=== PATIENT | male | born 1950 | race African-American/Black ===

== ENCOUNTER 2016-11-15 10:26 | Inpatient (IN) | payer MEDICARE, OTHER ==
[~2016-11-15] VITALS: Ht 175.3 cm; Wt 65.3 kg
[~2016-11-15 10:26] MED LIST: OXYC30TA2 PO; OXYC40TA50 PO; TEMA30CA5 PO
[2016-11-15 12:01] LABS: BASOPHILS # (AUTO) 0.1 /CMM (0.0-0.2); BASOPHILS % (AUTO) 0.8 % (0.0-2.0); DIFF TOTAL % 100 %; EOSINOPHILS % (AUTO) 0.6 % (0.0-6.0); HEMATOCRIT 46 % (39-51); HEMOGLOBIN 14.9 g/dL (13.5-17.5); LYMPHOCYTES # (AUTO) 0.9 /CMM (0.8-4.8); LYMPHOCYTES % (AUTO) 14.2 % (20.0-44.0); MEAN CORPUSCULAR HEMOGLOBIN 28 PG (26.0-33.0); MEAN CORPUSCULAR HGB CONC 32 g/dl (31.0-36.0); MEAN CORPUSCULAR VOLUME 87 fL (80-96); MONOCYTES # (AUTO) 0.4 /CMM (0.1-1.30); MONOCYTES % (AUTO) 5.5 % (2.0-12.0); NEUTROPHILS # (AUTO) 5.2 /CMM (1.8-8.9); NEUTROPHILS % (AUTO) 78.9 % (43.0-81.0); PLATELET COUNT (AUTO) 258 /CMM (150-450); RED BLOOD CELL COUNT(AUTO) 5.33 MIL/uL (4.5-6.0); WHITE BLOOD COUNT (AUTO) 6.6 K/uL (4.3-11.0)
[2016-11-15 12:03] LABS: KETONES,URINE 15 (NEGATIVE); LEUKOCYTE ESTERASE ,URINE Negative (NEGATIVE)
[2016-11-15 12:05] LABS: ADD UA MICROSCOPIC YES
[2016-11-15 12:09] LABS: ANION GAP 13 (5-14); CALCIUM, SERUM 9.4 mg/dL (8.5-10.1); CARBON DIOXIDE 26 mmol/L (21-32); CHLORIDE 103 mmol/L (98-107); CREATININE 0.9 mg/dL (0.6-1.3); GFR 102 mL/min (>60); GLUCOSE 92 mg/dL (74-106); POTASSIUM 4.1 mmol/L (3.5-5.1); SODIUM SERUM 138 mmol/L (136-145); UREA NITROGEN, BLOOD 8 mg/dL (7-18)
[2016-11-15 12:12] LABS: RBC,URINE 0-2 /HPF (0-2); WBC,URINE 0-2 /HPF (0-3)
[2016-11-15 12:13] LABS: ADD URINE CULTURE NO
[2016-11-15 12:16] LABS: ALANINE AMINOTRANSFERASE 16 U/L (12-78); ALBUMIN 3.5 g/dL (3.4-5.0); ASPARTATE AMINOTRANSFERASE 18 U/L (15-37); BILIRUBIN,DIRECT 0.1 mg/dL (0.0-0.2); BILIRUBIN,TOTAL 0.6 mg/dL (0.2-1.0); INDIRECT BILIRUBIN 0.5 mg/dL (0.0-1.1); SALICYLATE 4.1 mg/dL (2.8-20.0); TOTAL PROTEIN, SERUM 7.4 g/dL (6.4-8.2)
[2016-11-15 12:19] LABS: ACETAMINOPHEN 0 ug/ml (10-30)
[2016-11-15 12:20] LABS: PHENCYCLIDINE SCREEN,URINE NEGATIVE (NEGATIVE)
[2016-11-15 12:21] LABS: CANNABINOID, URINE POSITIVE (NEGATIVE)
[2016-11-15] MEDS ORDERED: ACETAMINOPHEN 325 MG TABLET PO PRN (13:30)
[2016-11-15] MEDS ORDERED: MAG HYDROX/AL HYDROX/SIMETH 30 ML UDC PO PRN (13:30)
[2016-11-15] MEDS: BOOST PLUS FOOD-VANILLA 237 ML BOX PO SCH ×2 (14:39→16:39)
[2016-11-15] MEDS: oxyCODONE IR immediate release 5 MG CAPSULE PO PRN ×2 (15:23→23:43)
[2016-11-15 16:00] VITALS: BP 138/81
[2016-11-15 19:42] VITALS: BP 143/96
[2016-11-15] MEDS: oxyCODONE HCL SR 40MG TAB.SR.12H PO SCH (20:33)
[2016-11-15] MEDS: TEMAZEPAM 7.5 MG CAPSULE PO PRN (21:42)
[2016-11-16 08:00] VITALS: BP 125/79
[2016-11-16] MEDS: SERTRALINE HCL 25 MG TABLET PO SCH (08:04)
[2016-11-16] MEDS: oxyCODONE HCL SR 40MG TAB.SR.12H PO SCH ×2 (08:05→20:51)
[2016-11-16] MEDS: BOOST PLUS FOOD-VANILLA 237 ML BOX PO SCH ×3 (08:05→16:12)
[2016-11-16] MEDS: NICOTINE PATCH (14MG) 14 MG PATCH.TD24 TD SCH (08:05)
[2016-11-16 08:54] LABS: ALBUMIN 3.4 g/dL (3.4-5.0); BILIRUBIN,TOTAL 0.4 mg/dL (0.2-1.0); CALCIUM, SERUM 9.1 mg/dL (8.5-10.1); CREATININE 1.1 mg/dL (0.6-1.3); POTASSIUM 3.5 mmol/L (3.5-5.1); TOTAL PROTEIN, SERUM 6.9 g/dL (6.4-8.2)
[2016-11-16] MEDS: oxyCODONE IR immediate release 5 MG CAPSULE PO PRN (11:47)
[2016-11-16 16:00] VITALS: BP 132/99
[2016-11-16] MEDS: LORAZEPAM 0.5 MG TABLET PO PRN (16:11)
[2016-11-16 19:58] VITALS: BP 110/65
[2016-11-16] MEDS: TEMAZEPAM 7.5 MG CAPSULE PO PRN (20:52)
[2016-11-17] MEDS: MAGNESIUM HYDROXIDE 30 ML UDC PO PRN ×2 (03:20→17:10)
[2016-11-17] MEDS: oxyCODONE IR immediate release 5 MG CAPSULE PO PRN ×2 (03:21→12:18)
[2016-11-17 08:00] VITALS: BP 130/74
[2016-11-17] MEDS: NICOTINE PATCH (14MG) 14 MG PATCH.TD24 TD SCH ×2 (09:00→09:36)
[2016-11-17] MEDS: SERTRALINE HCL 25 MG TABLET PO SCH (09:35)
[2016-11-17] MEDS: BOOST PLUS FOOD-VANILLA 237 ML BOX PO SCH ×3 (09:35→17:10)
[2016-11-17] MEDS: oxyCODONE HCL SR 40MG TAB.SR.12H PO SCH ×2 (09:35→21:51)
[2016-11-17 16:00] VITALS: BP 106/59
[2016-11-17] MEDS: LORAZEPAM 0.5 MG TABLET PO PRN ×2 (17:10→23:23)
[2016-11-17 19:45] VITALS: BP 104/50
[2016-11-17] MEDS: TEMAZEPAM 7.5 MG CAPSULE PO PRN (22:14)
[2016-11-18 08:00] VITALS: BP 156/81
[2016-11-18] MEDS: NICOTINE PATCH (14MG) 14 MG PATCH.TD24 TD SCH (09:00)
[2016-11-18] MEDS: SERTRALINE HCL 25 MG TABLET PO SCH (09:00)
[2016-11-18] MEDS: oxyCODONE HCL SR 40MG TAB.SR.12H PO SCH ×2 (09:21→21:17)
[2016-11-18] MEDS: BOOST PLUS FOOD-VANILLA 237 ML BOX PO SCH ×3 (09:22→17:51)
[2016-11-18] MEDS: oxyCODONE IR immediate release 5 MG CAPSULE PO PRN (13:04)
[2016-11-18] MEDS: LORAZEPAM 0.5 MG TABLET PO PRN ×2 (13:06→23:12)
[2016-11-18 16:00] VITALS: BP 100/61
[2016-11-18 20:00] VITALS: BP 122/80
[2016-11-18] MEDS: TEMAZEPAM 7.5 MG CAPSULE PO PRN (21:18)
[2016-11-19 08:00] VITALS: BP 130/82
[2016-11-19] MEDS: oxyCODONE HCL SR 40MG TAB.SR.12H PO SCH ×2 (09:53→21:47)
[2016-11-19] MEDS: SERTRALINE HCL 25 MG TABLET PO SCH (09:53)
[2016-11-19] MEDS: NICOTINE PATCH (14MG) 14 MG PATCH.TD24 TD SCH (09:53)
[2016-11-19] MEDS: BOOST PLUS FOOD-VANILLA 237 ML BOX PO SCH ×3 (09:54→18:01)
[2016-11-19] MEDS: LORAZEPAM 0.5 MG TABLET PO PRN (10:37)
[2016-11-19 16:08] VITALS: BP 101/60
[2016-11-19] MEDS: diphenhydrAMINE HCL 25 MG CAPSULE PO PRN (16:12)
[2016-11-19 20:00] VITALS: BP 136/78
[2016-11-19] MEDS: TEMAZEPAM 7.5 MG CAPSULE PO PRN (21:47)
[2016-11-20] MEDS: diphenhydrAMINE HCL 25 MG CAPSULE PO PRN ×3 (00:53→21:39)
[2016-11-20] MEDS: oxyCODONE IR immediate release 5 MG CAPSULE PO PRN ×2 (00:53→14:06)
[2016-11-20 07:59] VITALS: BP 105/73
[2016-11-20] MEDS: BOOST PLUS FOOD-VANILLA 237 ML BOX PO SCH ×3 (08:14→17:25)
[2016-11-20] MEDS: oxyCODONE HCL SR 40MG TAB.SR.12H PO SCH ×2 (08:18→20:53)
[2016-11-20] MEDS: SERTRALINE HCL 25 MG TABLET PO SCH (08:18)
[2016-11-20] MEDS: NICOTINE PATCH (14MG) 14 MG PATCH.TD24 TD SCH (08:18)
[2016-11-20] MEDS: LORAZEPAM 0.5 MG TABLET PO PRN (08:59)
[2016-11-20] MEDS ORDERED: NICOTINE PATCH (14MG) 14 MG PATCH.TD24 TD SCH (09:00)
[2016-11-20] MEDS: NICOTINE PATCH (7MG) 7 MG PATCH.TD24 TD SCH (09:38)
[2016-11-20] MEDS ORDERED: TEMAZEPAM 7.5 MG CAPSULE PO PRN (11:30)
[2016-11-20 16:11] VITALS: BP 123/74
[2016-11-20 19:48] VITALS: BP 125/67
[2016-11-21 08:00] VITALS: BP 131/80
[2016-11-21] MEDS: NICOTINE PATCH (7MG) 7 MG PATCH.TD24 TD SCH (08:12)
[2016-11-21] MEDS: SERTRALINE HCL 25 MG TABLET PO SCH (08:13)
[2016-11-21] MEDS: oxyCODONE HCL SR 40MG TAB.SR.12H PO SCH ×2 (08:13→20:23)
[2016-11-21] MEDS: BOOST PLUS FOOD-VANILLA 237 ML BOX PO SCH ×3 (08:13→17:32)
[2016-11-21] MEDS: diphenhydrAMINE HCL 25 MG CAPSULE PO PRN ×2 (12:18→22:42)
[2016-11-21] MEDS: oxyCODONE IR immediate release 5 MG CAPSULE PO PRN (15:35)
[2016-11-21 16:08] VITALS: BP 114/84
[2016-11-21 19:58] VITALS: BP 115/65
[2016-11-21] MEDS: MAGNESIUM HYDROXIDE 30 ML UDC PO PRN (20:23)
[2016-11-21] MEDS: TEMAZEPAM 15 MG CAPSULE PO PRN (21:10)
[2016-11-22] MEDS: oxyCODONE IR immediate release 5 MG CAPSULE PO PRN (06:23)
[2016-11-22 08:00] VITALS: BP 130/74
[2016-11-22] MEDS: NICOTINE PATCH (7MG) 7 MG PATCH.TD24 TD SCH (09:11)
[2016-11-22] MEDS: oxyCODONE HCL SR 40MG TAB.SR.12H PO SCH ×2 (09:11→20:05)
[2016-11-22] MEDS: BOOST PLUS FOOD-VANILLA 237 ML BOX PO SCH ×3 (09:12→17:29)
[2016-11-22] MEDS: SERTRALINE HCL 25 MG TABLET PO SCH (09:12)
[2016-11-22] MEDS: diphenhydrAMINE HCL 25 MG CAPSULE PO PRN ×2 (12:47→23:38)
[2016-11-22 16:00] VITALS: BP 140/85
[2016-11-22 20:03] VITALS: BP 139/83
[2016-11-22] MEDS: TEMAZEPAM 15 MG CAPSULE PO PRN (21:05)
[2016-11-23] MEDS: LORAZEPAM 0.5 MG TABLET PO PRN ×2 (02:48→13:17)
[2016-11-23] MEDS: oxyCODONE IR immediate release 5 MG CAPSULE PO PRN (02:49)
[2016-11-23 08:00] VITALS: BP 128/65
[2016-11-23] MEDS: NICOTINE PATCH (7MG) 7 MG PATCH.TD24 TD SCH (08:43)
[2016-11-23] MEDS: BOOST PLUS FOOD-VANILLA 237 ML BOX PO SCH ×3 (08:43→17:10)
[2016-11-23] MEDS: SERTRALINE HCL 25 MG TABLET PO SCH (08:44)
[2016-11-23] MEDS: oxyCODONE HCL SR 40MG TAB.SR.12H PO SCH ×2 (08:46→21:23)
[2016-11-23 16:02] VITALS: BP 130/87
[2016-11-23 20:03] VITALS: BP 133/82
[2016-11-23] MEDS: TEMAZEPAM 15 MG CAPSULE PO PRN (21:23)
[2016-11-24] MEDS: diphenhydrAMINE HCL 25 MG CAPSULE PO PRN (01:19)
[2016-11-24] MEDS: LORAZEPAM 0.5 MG TABLET PO PRN (01:19)
[2016-11-24] MEDS: BOOST PLUS FOOD-VANILLA 237 ML BOX PO SCH ×2 (08:06→12:18)
[2016-11-24] MEDS: NICOTINE PATCH (7MG) 7 MG PATCH.TD24 TD SCH (08:07)
[2016-11-24] MEDS: oxyCODONE HCL SR 40MG TAB.SR.12H PO SCH (08:08)
[2016-11-24] MEDS: SERTRALINE HCL 25 MG TABLET PO SCH (08:11)
[2016-11-24 08:55] VITALS: BP 135/83
[2016-11-24] MEDS: oxyCODONE IR immediate release 5 MG CAPSULE PO PRN (10:18)
== END 2016-11-24 13:15 | disposition home or self-care (01) | DRG 885 ==
LOC: ER 10:31 → GPS 12:17
PROVIDERS: ADMIT Psychiatry & Neurology Psychiatry; ATTEND Internal Medicine
DX: F33.2 Major depressive disorder, recurrent severe without psychotic features (principal); F12.90 Cannabis use, unspecified, uncomplicated; J44.9 Chronic obstructive pulmonary disease, unspecified; G89.4 Chronic pain syndrome; F17.210 Nicotine dependence, cigarettes, uncomplicated; F43.10 Post-traumatic stress disorder, unspecified; F29 Unspecified psychosis not due to a substance or known physiological condition; B35.1 Tinea unguium; I10 Essential (primary) hypertension; K58.0 Irritable bowel syndrome with diarrhea; L84 Corns and callosities; M20.40 Other hammer toe(s) (acquired), unspecified foot
CPT/HCPCS: 36415; 80048-TC; 80053-TC; 80076-TC; 80305; 81000-TC; 85025-TC; 87081-TC; A4606; G0480; G6039-TC; Q0163; Z7610

== ENCOUNTER 2016-12-09 10:09 | Inpatient (IN) | payer MEDICARE, OTHER ==
[~2016-12-09] VITALS: Ht 175.3 cm; Wt 70.8 kg
[2016-12-09 10:58] LABS: ADD UA MICROSCOPIC NO; KETONES,URINE Negative (NEGATIVE); LEUKOCYTE ESTERASE ,URINE Negative (NEGATIVE); PH,URINE 6.5 (5.0-8.0)
[2016-12-09 11:09] LABS: EOSINOPHILS % (AUTO) 0.3 % (0.0-6.0); HEMATOCRIT 42 % (39-51); HEMOGLOBIN 13.4 g/dL (13.5-17.5); MEAN CORPUSCULAR HEMOGLOBIN 27 PG (26.0-33.0); MONOCYTES # (AUTO) 0.5 /CMM (0.1-1.30); MONOCYTES % (AUTO) 5.4 % (2.0-12.0); RED BLOOD CELL COUNT(AUTO) 4.91 MIL/uL (4.5-6.0)
[2016-12-09 11:13] LABS: BASOPHILS # (AUTO) 0.4 /CMM (0.0-0.2); BASOPHILS % (AUTO) 4.9 % (0.0-2.0); DIFF TOTAL % 100 %; LYMPHOCYTES # (AUTO) 1.5 /CMM (0.8-4.8); MEAN CORPUSCULAR HGB CONC 32 g/dl (31.0-36.0); MEAN CORPUSCULAR VOLUME 85 fL (80-96); NEUTROPHILS % (AUTO) 71.4 % (43.0-81.0); PLATELET COUNT (AUTO) 254 /CMM (150-450); WHITE BLOOD COUNT (AUTO) 8.4 K/uL (4.3-11.0)
[2016-12-09 11:16] LABS: ANION GAP 10 (5-14); CALCIUM, SERUM 8.4 mg/dL (8.5-10.1); CARBON DIOXIDE 29 mmol/L (21-32); CHLORIDE 103 mmol/L (98-107); CREATININE 0.8 mg/dL (0.6-1.3); GFR 117 mL/min (>60); GLUCOSE 73 mg/dL (74-106); POTASSIUM 3.6 mmol/L (3.5-5.1); SODIUM SERUM 138 mmol/L (136-145); UREA NITROGEN, BLOOD 11 mg/dL (7-18)
[2016-12-09 11:31] LABS: ALANINE AMINOTRANSFERASE 18 U/L (12-78); ALBUMIN 3.5 g/dL (3.4-5.0); ASPARTATE AMINOTRANSFERASE 16 U/L (15-37); BILIRUBIN,DIRECT 0.1 mg/dL (0.0-0.2); BILIRUBIN,TOTAL 0.5 mg/dL (0.2-1.0); INDIRECT BILIRUBIN 0.4 mg/dL (0.0-1.1); TOTAL PROTEIN, SERUM 6.8 g/dL (6.4-8.2)
[2016-12-09 11:32] LABS: ACETAMINOPHEN 0 ug/ml (10-30)
[2016-12-09 13:07] LABS: PHENCYCLIDINE SCREEN,URINE NEGATIVE (NEGATIVE)
[2016-12-09 13:09] LABS: CANNABINOID, URINE POSITIVE (NEGATIVE)
[2016-12-09 16:00] VITALS: BP 168/88
[2016-12-09] MEDS ORDERED: ACETAMINOPHEN 325 MG TABLET PO PRN (16:00)
[2016-12-09] MEDS ORDERED: MAG HYDROX/AL HYDROX/SIMETH 30 ML UDC PO PRN (16:00)
[2016-12-09] MEDS: oxyCODONE IR immediate release 5 MG CAPSULE PO PRN (18:40)
[2016-12-09 20:00] VITALS: BP 140/91
[2016-12-09] MEDS: oxyCODONE HCL SR 20MG TAB.SR.12H PO SCH (21:12)
[2016-12-10] MEDS: oxyCODONE IR immediate release 5 MG CAPSULE PO PRN ×3 (00:37→20:06)
[2016-12-10] MEDS: BOOST PLUS FOOD-VANILLA 237 ML BOX PO SCH ×3 (07:53→16:58)
[2016-12-10] MEDS: oxyCODONE HCL SR 20MG TAB.SR.12H PO SCH ×2 (08:02→20:07)
[2016-12-10 08:24] VITALS: BP 139/79
[2016-12-10 09:39] LABS: ALBUMIN 3.4 g/dL (3.4-5.0); BILIRUBIN,TOTAL 0.4 mg/dL (0.2-1.0); CALCIUM, SERUM 8.6 mg/dL (8.5-10.1); POTASSIUM 3.4 mmol/L (3.5-5.1); TOTAL PROTEIN, SERUM 6.6 g/dL (6.4-8.2)
[2016-12-10] MEDS: NICOTINE PATCH (14MG) 14 MG PATCH.TD24 TD SCH (11:24)
[2016-12-10] MEDS: diphenhydrAMINE HCL 25 MG CAPSULE PO PRN ×2 (11:58→20:06)
[2016-12-10] MEDS ORDERED: POTASSIUM CHLORIDE 20 MEQ TAB.PRT.SR PO ONE (16:00)
[2016-12-10 16:05] VITALS: BP 129/92
[2016-12-10] MEDS ORDERED: SERTRALINE HCL 50 MG TABLET PO SCH (16:33)
[2016-12-10] MEDS: SERTRALINE HCL 50 MG TABLET PO SCH (16:55)
[2016-12-10 20:00] VITALS: BP 116/59
[2016-12-10] MEDS: TEMAZEPAM 7.5 MG CAPSULE PO PRN (22:04)
[2016-12-11] MEDS: oxyCODONE IR immediate release 5 MG CAPSULE PO PRN ×2 (06:46→18:55)
[2016-12-11 08:00] VITALS: BP_SYST 108; BP_SYST 144; BP_DIAS 71; BP_DIAS 76
[2016-12-11] MEDS: BOOST PLUS FOOD-VANILLA 237 ML BOX PO SCH ×3 (08:24→17:23)
[2016-12-11] MEDS: NICOTINE PATCH (14MG) 14 MG PATCH.TD24 TD SCH (08:25)
[2016-12-11] MEDS: SERTRALINE HCL 50 MG TABLET PO SCH (08:25)
[2016-12-11] MEDS: diphenhydrAMINE HCL 25 MG CAPSULE PO PRN ×2 (08:55→21:31)
[2016-12-11] MEDS: oxyCODONE HCL SR 20MG TAB.SR.12H PO SCH ×2 (10:47→21:29)
[2016-12-11 16:41] VITALS: BP 132/66
[2016-12-11 20:21] VITALS: BP 141/92
[2016-12-11 21:27] VITALS: BP 110/78
[2016-12-11] MEDS: TEMAZEPAM 7.5 MG CAPSULE PO PRN (22:22)
[2016-12-12] MEDS: LORAZEPAM 0.5 MG TABLET PO PRN ×2 (02:31→10:51)
[2016-12-12 08:00] VITALS: BP 132/80
[2016-12-12] MEDS: SERTRALINE HCL 50 MG TABLET PO SCH (08:13)
[2016-12-12] MEDS: oxyCODONE HCL SR 20MG TAB.SR.12H PO SCH ×2 (08:13→21:20)
[2016-12-12] MEDS: NICOTINE PATCH (14MG) 14 MG PATCH.TD24 TD SCH (08:14)
[2016-12-12] MEDS: BOOST PLUS FOOD-VANILLA 237 ML BOX PO SCH ×3 (08:17→16:27)
[2016-12-12] MEDS: diphenhydrAMINE HCL 25 MG CAPSULE PO PRN (11:13)
[2016-12-12 16:00] VITALS: BP 132/94
[2016-12-12] MEDS: oxyCODONE IR immediate release 5 MG CAPSULE PO PRN (18:56)
[2016-12-12 20:04] VITALS: BP 148/87
[2016-12-12] MEDS: TEMAZEPAM 7.5 MG CAPSULE PO PRN (21:21)
[2016-12-12] MEDS: MAGNESIUM HYDROXIDE 30 ML UDC PO PRN (22:56)
[2016-12-13] MEDS: oxyCODONE IR immediate release 5 MG CAPSULE PO PRN ×2 (06:45→16:37)
[2016-12-13 08:00] VITALS: BP 125/76
[2016-12-13] MEDS: NICOTINE PATCH (14MG) 14 MG PATCH.TD24 TD SCH ×2 (08:05→09:00)
[2016-12-13] MEDS: SERTRALINE HCL 50 MG TABLET PO SCH (08:05)
[2016-12-13] MEDS: BOOST PLUS FOOD-VANILLA 237 ML BOX PO SCH ×3 (08:06→16:36)
[2016-12-13] MEDS: diphenhydrAMINE HCL 25 MG CAPSULE PO PRN (08:18)
[2016-12-13] MEDS: oxyCODONE HCL SR 20MG TAB.SR.12H PO SCH ×3 (09:00→20:10)
[2016-12-13 16:00] VITALS: BP 135/78
[2016-12-13] MEDS: MAGNESIUM HYDROXIDE 30 ML UDC PO PRN (20:04)
[2016-12-13] MEDS: TEMAZEPAM 7.5 MG CAPSULE PO PRN (20:58)
[2016-12-13 21:26] VITALS: BP 103/80
[2016-12-14] MEDS: oxyCODONE HCL SR 20MG TAB.SR.12H PO SCH ×2 (08:30→20:59)
[2016-12-14] MEDS: SERTRALINE HCL 50 MG TABLET PO SCH (08:30)
[2016-12-14] MEDS: BOOST PLUS FOOD-VANILLA 237 ML BOX PO SCH ×3 (08:30→17:01)
[2016-12-14] MEDS: NICOTINE PATCH (14MG) 14 MG PATCH.TD24 TD SCH (08:31)
[2016-12-14 08:50] VITALS: BP 145/94
[2016-12-14] MEDS: oxyCODONE IR immediate release 5 MG CAPSULE PO PRN ×2 (11:53→18:32)
[2016-12-14 16:33] VITALS: BP 151/85
[2016-12-14 20:04] VITALS: BP 135/78
[2016-12-14] MEDS: TEMAZEPAM 7.5 MG CAPSULE PO PRN (21:26)
[2016-12-14] MEDS: diphenhydrAMINE HCL 25 MG CAPSULE PO PRN (21:26)
[2016-12-14] MEDS: LORAZEPAM 0.5 MG TABLET PO PRN (21:26)
[2016-12-15] MEDS: oxyCODONE IR immediate release 5 MG CAPSULE PO PRN ×2 (06:58→13:50)
[2016-12-15 07:01] LABS: BASOPHILS % (AUTO) 0.4 % (0.0-2.0); DIFF TOTAL % 100 %; EOSINOPHILS # (AUTO) 0.1 /CMM (0.0-0.7); EOSINOPHILS % (AUTO) 2.2 % (0.0-6.0); HEMATOCRIT 39 % (39-51); HEMOGLOBIN 12.7 g/dL (13.5-17.5); LYMPHOCYTES # (AUTO) 1.3 /CMM (0.8-4.8); LYMPHOCYTES % (AUTO) 30.3 % (20.0-44.0); MEAN CORPUSCULAR HEMOGLOBIN 28 PG (26.0-33.0); MEAN CORPUSCULAR HGB CONC 33 g/dl (31.0-36.0); MEAN CORPUSCULAR VOLUME 85 fL (80-96); MONOCYTES # (AUTO) 0.5 /CMM (0.1-1.30); MONOCYTES % (AUTO) 12.4 % (2.0-12.0); NEUTROPHILS # (AUTO) 2.4 /CMM (1.8-8.9); NEUTROPHILS % (AUTO) 54.7 % (43.0-81.0); PLATELET COUNT (AUTO) 207 /CMM (150-450); RED BLOOD CELL COUNT(AUTO) 4.54 MIL/uL (4.5-6.0); WHITE BLOOD COUNT (AUTO) 4.3 K/uL (4.3-11.0)
[2016-12-15 07:34] LABS: CALCIUM, SERUM 9.2 mg/dL (8.5-10.1); CREATININE 0.8 mg/dL (0.6-1.3); PHOSPHORUS 3.9 mg/dL (2.5-4.9); POTASSIUM 4.1 mmol/L (3.5-5.1)
[2016-12-15] MEDS: SERTRALINE HCL 50 MG TABLET PO SCH (08:03)
[2016-12-15] MEDS: LORAZEPAM 0.5 MG TABLET PO PRN ×2 (08:03→15:25)
[2016-12-15] MEDS: NICOTINE PATCH (14MG) 14 MG PATCH.TD24 TD SCH (08:04)
[2016-12-15] MEDS: BOOST PLUS FOOD-VANILLA 237 ML BOX PO SCH ×3 (08:06→17:35)
[2016-12-15 08:43] VITALS: BP 143/94
[2016-12-15] MEDS: oxyCODONE HCL SR 20MG TAB.SR.12H PO SCH ×2 (09:13→20:31)
[2016-12-15 16:00] VITALS: BP 129/72
[2016-12-15 20:00] VITALS: BP 129/93
[2016-12-15] MEDS: TEMAZEPAM 7.5 MG CAPSULE PO PRN (20:32)
[2016-12-16] MEDS: LORAZEPAM 0.5 MG TABLET PO PRN ×3 (00:09→20:30)
[2016-12-16] MEDS: oxyCODONE IR immediate release 5 MG CAPSULE PO PRN ×4 (00:10→22:31)
[2016-12-16] MEDS: diphenhydrAMINE HCL 25 MG CAPSULE PO PRN ×2 (04:16→22:31)
[2016-12-16 08:00] VITALS: BP 133/91
[2016-12-16] MEDS: oxyCODONE HCL SR 20MG TAB.SR.12H PO SCH ×2 (08:09→20:29)
[2016-12-16] MEDS: SERTRALINE HCL 50 MG TABLET PO SCH (08:09)
[2016-12-16] MEDS: BOOST PLUS FOOD-VANILLA 237 ML BOX PO SCH ×3 (08:09→16:14)
[2016-12-16] MEDS: NICOTINE PATCH (14MG) 14 MG PATCH.TD24 TD SCH (08:09)
[2016-12-16 16:20] VITALS: BP 148/73
[2016-12-16 20:00] VITALS: BP 133/80
[2016-12-16] MEDS: TEMAZEPAM 7.5 MG CAPSULE PO PRN (23:51)
[2016-12-17 08:00] VITALS: BP 147/95
[2016-12-17] MEDS: oxyCODONE HCL SR 20MG TAB.SR.12H PO SCH ×2 (08:04→21:07)
[2016-12-17] MEDS: BOOST PLUS FOOD-VANILLA 237 ML BOX PO SCH ×3 (08:04→16:14)
[2016-12-17] MEDS: SERTRALINE HCL 50 MG TABLET PO SCH (08:04)
[2016-12-17] MEDS: NICOTINE PATCH (14MG) 14 MG PATCH.TD24 TD SCH (08:07)
[2016-12-17] MEDS: oxyCODONE IR immediate release 5 MG CAPSULE PO PRN ×2 (10:24→20:09)
[2016-12-17] MEDS: LORAZEPAM 0.5 MG TABLET PO PRN ×2 (11:20→21:51)
[2016-12-17 16:20] VITALS: BP 139/81
[2016-12-17 20:00] VITALS: BP 150/98
[2016-12-17] MEDS: diphenhydrAMINE HCL 25 MG CAPSULE PO PRN ×2 (21:07→22:07)
[2016-12-17] MEDS: TEMAZEPAM 7.5 MG CAPSULE PO PRN (21:26)
[2016-12-18] MEDS: LORAZEPAM 0.5 MG TABLET PO PRN ×3 (04:34→20:31)
[2016-12-18] MEDS: oxyCODONE IR immediate release 5 MG CAPSULE PO PRN ×3 (06:47→21:36)
[2016-12-18] MEDS: oxyCODONE HCL SR 20MG TAB.SR.12H PO SCH ×2 (08:13→20:30)
[2016-12-18] MEDS: BOOST PLUS FOOD-VANILLA 237 ML BOX PO SCH ×3 (08:13→16:36)
[2016-12-18] MEDS: NICOTINE PATCH (14MG) 14 MG PATCH.TD24 TD SCH (08:14)
[2016-12-18] MEDS: SERTRALINE HCL 50 MG TABLET PO SCH (08:14)
[2016-12-18 08:20] VITALS: BP 143/92
[2016-12-18 16:05] VITALS: BP 131/90
[2016-12-18 20:11] VITALS: BP 142/65
[2016-12-18] MEDS: diphenhydrAMINE HCL 25 MG CAPSULE PO PRN (20:31)
[2016-12-18] MEDS: TEMAZEPAM 7.5 MG CAPSULE PO PRN (20:32)
[2016-12-19] MEDS: oxyCODONE IR immediate release 5 MG CAPSULE PO PRN (04:36)
[2016-12-19] MEDS: BOOST PLUS FOOD-VANILLA 237 ML BOX PO SCH ×2 (07:43→12:13)
[2016-12-19 08:00] VITALS: BP 128/78
[2016-12-19] MEDS: oxyCODONE HCL SR 20MG TAB.SR.12H PO SCH (08:22)
[2016-12-19] MEDS: SERTRALINE HCL 50 MG TABLET PO SCH (08:23)
[2016-12-19] MEDS: NICOTINE PATCH (14MG) 14 MG PATCH.TD24 TD SCH (08:24)
[2016-12-19] MEDS: LORAZEPAM 0.5 MG TABLET PO PRN (11:38)
== END 2016-12-19 15:05 | disposition home or self-care (01) | DRG 885 ==
LOC: ER 10:16 → GPS 15:14
PROVIDERS: ADMIT Psychiatry & Neurology Psychiatry; ATTEND Nurse Practitioner Acute Care
DX: F33.2 Major depressive disorder, recurrent severe without psychotic features (principal); J44.9 Chronic obstructive pulmonary disease, unspecified; F11.90 Opioid use, unspecified, uncomplicated; G89.4 Chronic pain syndrome; M54.5 Low back pain; F17.210 Nicotine dependence, cigarettes, uncomplicated; F12.90 Cannabis use, unspecified, uncomplicated; Z91.5 Personal history of self-harm
CPT/HCPCS: 36415; 80048-TC; 80053-TC; 80076-TC; 80305; 81000-TC; 83735-TC; 84100-TC; 85025-TC; 87081-TC; A4606; G0480; G6039-TC; Q0163; Z7610

== ENCOUNTER 2017-02-03 13:08 | Inpatient (IN) | payer MEDICARE, OTHER ==
[~2017-02-03] VITALS: Ht 165.1 cm; Wt 73.5 kg
[2017-02-03] MEDS ORDERED: ALBUTEROL FS 2.5 MG/3 ML VIAL.NEB NEB ONE (13:30)
[2017-02-03 13:41] LABS: APPEARANCE,URINE Clear (CLEAR); BILIRUBIN,URINE Negative (NEGATIVE); BLOOD, URINE Negative Ery/uL (NEGATIVE); COLOR,URINE Yellow (YELLOW); KETONES,URINE Trace (NEGATIVE); LEUKOCYTE ESTERASE ,URINE Negative (NEGATIVE); NITRITE, URINE Negative (NEGATIVE); PROTEIN,URINE Negative (NEGATIVE); UGLUCOSE Negative (NEGATIVE); UROBILINOGEN,URINE 0.2 EU/dL (0.2)
--- NOTE | 2017-02-03 13:51 | NUR ---
BIB SELF FOR SOB X 2 DAYS AND SUICIDAL IDEATIONS, PATIENT IS VERBALLY RESPONSIVE, A/O X4, PLACED ON MONITOR AND SUICIDAL PRECAUTION, ABLE TO AMBULATE TO BED, MD AT BEDSIDE UPON ARRIVAL, NO CHEST PAIN OR ACUTE RESPIRATORY DISTRESS, WILL CONTINUE TO MONITOR CLOSELY.
[2017-02-03 13:52] LABS: CANNABINOID, URINE POSITIVE (NEGATIVE); PHENCYCLIDINE SCREEN,URINE NEGATIVE (NEGATIVE)
[2017-02-03 13:53] LABS: ADD URINE CULTURE NO; BACTERIA,URINE Rare /HPF (None Seen); RBC,URINE 0-2 /HPF (0-2); SQUAMOUS EPITHELIAL CELL,UR Rare /HPF (None Seen); WBC,URINE 0-2 /HPF (0-3)
[2017-02-03] MEDS ORDERED: ALBUTEROL FS 2.5 MG/3 ML VIAL.NEB ONE (13:54)
[2017-02-03 13:58] LABS: BASOPHILS % (AUTO) 0.5 % (0.0-2.0); EOSINOPHILS % (AUTO) 0.3 % (0.0-6.0); HEMATOCRIT 44 % (39-51); LYMPHOCYTES # (AUTO) 1.6 /CMM (0.8-4.8); MEAN CORPUSCULAR HEMOGLOBIN 28 PG (26.0-33.0); MEAN CORPUSCULAR HGB CONC 32 g/dl (31.0-36.0); MEAN CORPUSCULAR VOLUME 87 fL (80-96); MONOCYTES # (AUTO) 0.4 /CMM (0.1-1.30); MONOCYTES % (AUTO) 5.5 % (2.0-12.0); NEUTROPHILS # (AUTO) 5.1 /CMM (1.8-8.9); NEUTROPHILS % (AUTO) 70.7 % (43.0-81.0); PLATELET COUNT (AUTO) 208 /CMM (150-450); RDW COEFFICIENT OF VARIATION 15.3 (11.5-15.0); RED BLOOD CELL COUNT(AUTO) 5.02 MIL/uL (4.5-6.0); WHITE BLOOD COUNT (AUTO) 7.1 K/uL (4.3-11.0)
[2017-02-03 14:08] LABS: CALCIUM, SERUM 9.1 mg/dL (8.5-10.1); CARBON DIOXIDE 27 mmol/L (21-32); CHLORIDE 104 mmol/L (98-107); CREATININE 0.8 mg/dL (0.6-1.3); GFR 117 mL/min (>60); GLUCOSE 94 mg/dL (74-106); POTASSIUM 3.4 mmol/L (3.5-5.1); SODIUM SERUM 138 mmol/L (136-145); UREA NITROGEN, BLOOD 15 mg/dL (7-18)
[2017-02-03 14:16] LABS: TROPONIN I < 0.017 ng/mL (0.00-0.056)
[2017-02-03 14:25] LABS: ACETAMINOPHEN 0 ug/ml (10-30); ALANINE AMINOTRANSFERASE 15 U/L (12-78); ALBUMIN 3.6 g/dL (3.4-5.0); ALKALINE PHOSPHATASE 77 U/L (46-116); ASPARTATE AMINOTRANSFERASE 17 U/L (15-37); BILIRUBIN,DIRECT 0.1 mg/dL (0.0-0.2); BILIRUBIN,TOTAL 0.6 mg/dL (0.2-1.0); SALICYLATE 3.7 mg/dL (2.8-20.0)
[2017-02-03 14:26] LABS: ALCOHOL, BLOOD < 3 mg/dL (0-0)
--- NOTE | 2017-02-03 14:29 | NUR ---
CALLED [facility] FOR PSYCH EVAL.
[2017-02-03] MEDS ORDERED: POTASSIUM CHLORIDE 20 MEQ TAB.PRT.SR PO ONE ×2 (14:30→14:46)
[2017-02-03] MEDS ORDERED: MAG HYDROX/AL HYDROX/SIMETH 30 ML UDC ONE (17:56)
[2017-02-03] MEDS ORDERED: MAG HYDROX/AL HYDROX/SIMETH 30 ML UDC PO ONE (18:00)
--- NOTE | 2017-02-03 18:56 | NUR ---
PT TRANSFERED VIA W/C. PT STABLE, AWARE OF TRANSFER WITH ALL PERSONAL BELONGINGS.
[2017-02-03 20:00] VITALS: BP 155/84
--- NOTE | 2017-02-03 20:00 | NUR ---
ADMITTED THIS 66 Y/O MALE PATIENT FROM ER. PATIENT IS ON 5150 HOLD FOR DANGER TO SELF. PER HOLD PATIENT STATED "I STOPPED TAKING MY MEDICATION ZOLOFT IT MAKES ME FEEL MORE DEPRESS". PATIENT STATED THAT HE IS DEPRESSED AND HAVING SUICIDAL IDEATION WITH A PLAN TO INJECT MERCURY TO HIS VEIN. PATIENT FURTHER STATED. "I HAVE A LOT OF OPTION TO KILL MYSELF". PATIENT HAS HISTORY OF PTSD AND SCHIZOAFFECTIVE DISORDER. UPON FACE TO FACE ASSESSMENT. PATIENT IS A&OX3, AMBULATORY, DEPRESSED, NEEDY, DENIES SI/HI AT THIS TIME. V/S STABLE. RESPIRATION EVEN AND UNLABORED. PATIENT PSYCH DX OF DEPRESSION. MEDICAL DX OF CHRONIC BACK PAIN. PATIENT IS UNDER THE PSYCHIATRIC CARE OF DR TORRE AND THE MEDICAL CARE OF DR BUNCH. PATIENT BELONGINGS WERE INVENTORIED AND CHECKED FOR CONTRABAND. CONTRABAND PUT IN THE SAFE LOCKED CABINET. MRSA DONE. SKIN/BODY ASSESSMENT DONE. SKIN CLEAR AND INTACT. ALL NEEDS ATTENDED AND ANTICIPATED. BED IN LOW AND LOCKED POSITION. SIDERAILS UPX2. CALL CANTU WITHIN REACH. WILL CONTINUE TO MONITOR FOR SAFETY AND BEHAVIOR [id number].
[2017-02-03] MEDS ORDERED: MAG HYDROX/AL HYDROX/SIMETH 30 ML UDC PO PRN (20:30)
[2017-02-03] MEDS ORDERED: ACETAMINOPHEN 325 MG TABLET PO PRN (20:30)
[2017-02-03] MEDS: oxyCODONE HCL SR 20MG TAB.SR.12H PO SCH (21:20)
[2017-02-03] MEDS ORDERED: TEMAZEPAM 7.5 MG CAPSULE ONE (22:12)
[2017-02-03] MEDS: TEMAZEPAM 7.5 MG CAPSULE PO PRN (22:15)
[2017-02-03 23:54] VITALS: BP 155/84
[2017-02-04] MEDS: oxyCODONE IR immediate release 5 MG CAPSULE PO PRN ×3 (00:50→16:04)
[2017-02-04 08:03] LABS: ALBUMIN 3.6 g/dL (3.4-5.0); BILIRUBIN,TOTAL 0.8 mg/dL (0.2-1.0); CALCIUM, SERUM 8.7 mg/dL (8.5-10.1); CREATININE 0.9 mg/dL (0.6-1.3); POTASSIUM 3.9 mmol/L (3.5-5.1)
[2017-02-04] MEDS: oxyCODONE HCL SR 20MG TAB.SR.12H PO SCH ×2 (08:42→21:11)
[2017-02-04 09:10] VITALS: BP 131/84
[2017-02-04] MEDS: SERTRALINE HCL 50 MG TABLET PO SCH (13:54)
[2017-02-04 16:00] VITALS: BP 157/98
[2017-02-04] MEDS: LORAZEPAM 0.5 MG TABLET PO PRN (19:17)
[2017-02-04 20:00] VITALS: BP 140/89
[2017-02-04 20:17] VITALS: BP 137/92
[2017-02-04] MEDS ORDERED: diphenhydrAMINE HCL 50 MG CAPSULE ONE (20:47)
[2017-02-04] MEDS: diphenhydrAMINE HCL 50 MG CAPSULE PO PRN (21:11)
[2017-02-04] MEDS: TEMAZEPAM 7.5 MG CAPSULE PO PRN (22:07)
[2017-02-05] MEDS: oxyCODONE IR immediate release 5 MG CAPSULE PO PRN ×2 (06:26→15:32)
[2017-02-05 08:00] VITALS: BP 127/89
[2017-02-05] MEDS: diphenhydrAMINE HCL 50 MG CAPSULE PO PRN ×2 (08:11→21:48)
[2017-02-05] MEDS: SERTRALINE HCL 50 MG TABLET PO SCH (08:11)
[2017-02-05] MEDS: oxyCODONE HCL SR 20MG TAB.SR.12H PO SCH ×2 (08:12→20:39)
--- NOTE | 2017-02-05 08:15 | NUR ---
pt c/o itching Benadryl 50 mg po prn given ,will continue to monitor
[2017-02-05] MEDS: LORAZEPAM 0.5 MG TABLET PO PRN (09:58)
--- NOTE | 2017-02-05 10:01 | NUR ---
RN NOTES PT C/O ANXIETY LORAZEPAM 0.5 MG PO PRN GIVEN , WILL CONTINUE TO MONITOR.
[2017-02-05 16:15] VITALS: BP 133/78
[2017-02-05 20:00] VITALS: BP 161/100
[2017-02-05] MEDS: TEMAZEPAM 7.5 MG CAPSULE PO PRN (21:48)
[2017-02-05] MEDS: MAGNESIUM HYDROXIDE 30 ML UDC PO PRN (22:28)
[2017-02-06] MEDS: oxyCODONE IR immediate release 5 MG CAPSULE PO PRN ×3 (00:28→19:31)
--- NOTE | 2017-02-06 01:30 | NUR ---
Pt has been continuously asking for different kinds of meds. He remains awake most of the night fighting the effects of meds(already taken) waiting for the next dose.
[2017-02-06 08:00] VITALS: BP 141/75
[2017-02-06] MEDS: SERTRALINE HCL 50 MG TABLET PO SCH (08:17)
[2017-02-06] MEDS: oxyCODONE HCL SR 20MG TAB.SR.12H PO SCH ×2 (08:17→20:52)
--- NOTE | 2017-02-06 10:47 | NUR ---
[id number]: OXYCODONE 30 MG PO DUE TO GENERALIZED PAIN 06/01 UPON PT REQUEST AND WILL CONTINUE TO MONITOR FOR EFFECTIVENESS
--- NOTE | 2017-02-06 11:21 | NUR ---
Initial discharge plan :Patient resides as [id number] [place] [address] Apt [facility], [place] [address]; [phone] and wants to return home. Pt. will be given an option to go to a facility if agreeable. SW will help provide for a safe and proper discharge.
[2017-02-06 16:00] VITALS: BP 133/87
[2017-02-06] MEDS: LORAZEPAM 0.5 MG TABLET PO PRN ×2 (17:25→23:58)
--- NOTE | 2017-02-06 17:25 | NUR ---
[id number]: GAVE ATIVAN 0.5 MG PO DUE TO SEVERE ANXIETY UPON PT REQUEST AND WILL CONTINUE TO MONITOR FOR EFFECTIVENESS OF MEDICATION
[2017-02-06 20:05] VITALS: BP 139/86
[2017-02-06] MEDS: diphenhydrAMINE HCL 50 MG CAPSULE PO PRN (21:18)
[2017-02-06] MEDS: TEMAZEPAM 15 MG CAPSULE PO PRN (22:23)
--- NOTE | 2017-02-07 02:05 | NUR ---
PATIENT FOUND SITTING ON THE FLOOR, PER PATIENT HE WAS PRAYING WHILE KNEELING NEXT TO HIS BED AND WHEN HE TRIED TO GET UP HE LOSS HIS BALANCE AND SAT DOWN TO THE FLOOR. DENIES NEW PAIN AND DISCOMFORT. PATIENT STILL ABLE TO AMBULATE WITHOUT C/O PAIN AND DISCOMFORT. NO CHANGE IN LEVEL OF CONSCIOUSNESS NOTED. V/S GZ=603/82 P=70 R=18 T=98.2. PATIENT APPRECIATED THE NURSES. WILL CONTINUE TO MONITOR [id number] FOR SAFETY Addendum: 02/07/17 at 0320 by LEE PFEIFFER II, RN ADDENDUM: NO NEW SKIN BREAKDOWN NOTED. NO APPARENT INJURY NOTED. NO VISUAL INJURY NOTED.WILL CONTINUE TO MONITOR [id number] FOR SAFETY.
[2017-02-07] MEDS: oxyCODONE IR immediate release 5 MG CAPSULE PO PRN ×2 (04:45→15:03)
[2017-02-07] MEDS: diphenhydrAMINE HCL 50 MG CAPSULE PO PRN ×3 (04:45→23:10)
[2017-02-07] MEDS: oxyCODONE HCL SR 20MG TAB.SR.12H PO SCH ×2 (08:09→20:28)
[2017-02-07] MEDS: SERTRALINE HCL 50 MG TABLET PO SCH (08:09)
[2017-02-07 08:18] VITALS: BP 147/78
[2017-02-07 14:51] LABS: CHOLESTEROL 167 mg/dL (<200); HDL CHOLESTEROL 61 mg/dL (40-60); LDL 89 mg/dL (0-99); TRIGLYCERIDES 95 mg/dL (30-150)
--- NOTE | 2017-02-07 15:03 | NUR ---
[id number]: OXYCODONE 30 MG PO DUE TO GENERALIZED PAIN 06/01 UPON PT REQUEST AND WILL CONTINUE TO MONITOR FOR EFFECTIVENESS
[2017-02-07 16:00] VITALS: BP 138/68
--- NOTE | 2017-02-07 16:16 | NUR ---
FSR-WV-[id number]: GAVE BENADRYL 50 MG PO DUE TO ITCHINESS UPON PT REQUEST AND WILL CONTINUE TO MONITOR FOR EFFECTIVENESS OF MEDICATION
[2017-02-07 20:15] VITALS: BP 133/78
[2017-02-07] MEDS: MAGNESIUM HYDROXIDE 30 ML UDC PO PRN (20:56)
[2017-02-07] MEDS: TEMAZEPAM 15 MG CAPSULE PO PRN (21:50)
[2017-02-07] MEDS: LORAZEPAM 0.5 MG TABLET PO PRN (23:07)
[2017-02-08] MEDS: oxyCODONE IR immediate release 5 MG CAPSULE PO PRN ×2 (07:07→16:24)
[2017-02-08 08:00] VITALS: BP 146/73
[2017-02-08] MEDS: SERTRALINE HCL 50 MG TABLET PO SCH (08:17)
[2017-02-08] MEDS: diphenhydrAMINE HCL 50 MG CAPSULE PO PRN ×2 (08:18→21:58)
--- NOTE | 2017-02-08 08:19 | NUR ---
administered benadryl 25 mg po prn for itching, continued monitoring.
[2017-02-08] MEDS: oxyCODONE HCL SR 20MG TAB.SR.12H PO SCH ×2 (11:04→20:15)
[2017-02-08 16:00] VITALS: BP 117/78
--- NOTE | 2017-02-08 16:24 | NUR ---
ADMINISTERED OXY IR 30 MG PO PRN FOR CHRONIC GENERALIZED PAIN 07/02 PER PATIENT REQUEST, V/S TAKEN BP-117/78, P-74, ENCOURAGED TO INCREASE FLUID INTAKE, CONTINUED MONITORING.
--- NOTE | 2017-02-08 19:30 | NUR ---
RN NOTE; RECEIVED PT IN ROOM AWAKE AND ALERT W/ ANXITY EPISODE AND C/O CHRONIC PAIN. BREATHING EVENLY. NO SOB. SPOKE TO THE PT AND TRIED TO CALM HIM DOWN. WILL CONT TO MONITOR .
[2017-02-08 20:36] VITALS: BP 155/90
--- NOTE | 2017-02-08 21:59 | NUR ---
Benadryl given per pt's request for c/o itchiness. will cont to monitor
[2017-02-09] MEDS: oxyCODONE IR immediate release 5 MG CAPSULE PO PRN ×3 (00:35→18:15)
[2017-02-09] MEDS: TEMAZEPAM 15 MG CAPSULE PO PRN ×2 (00:35→21:26)
--- NOTE | 2017-02-09 00:37 | NUR ---
OXY IR AND RESTORIL GIVEN PER PT'S REQEST FOR C/O PAIN AND INSOMNIA. WILL CONT TO MONITOR
--- NOTE | 2017-02-09 06:36 | NUR ---
RN NOTE; PT IN BED AWAKE AND ALERT. BREATHING EVENLY. NO SOB. NO DISTRESS. W/ POOR NIGHT SLEEP . NO ACUTE CHANGES NOTED DURING THE NIGHT . NEEDS ATTENDED. MEDICATED ORDERED. WILL CONT TO MONITOR AND WILL ENDORSE TO MA SHIFT FOR PASQUALE.
[2017-02-09 08:00] VITALS: BP 125/69
[2017-02-09] MEDS: oxyCODONE HCL SR 20MG TAB.SR.12H PO SCH ×2 (08:27→21:21)
[2017-02-09] MEDS: SERTRALINE HCL 50 MG TABLET PO SCH ×2 (08:27→08:29)
[2017-02-09 15:55] VITALS: BP 130/77
[2017-02-09] MEDS: LORAZEPAM 0.5 MG TABLET PO PRN ×2 (16:02→20:01)
[2017-02-09] MEDS: diphenhydrAMINE HCL 50 MG CAPSULE PO PRN (19:29)
[2017-02-10 08:00] VITALS: BP 130/80
[2017-02-10] MEDS: oxyCODONE HCL SR 20MG TAB.SR.12H PO SCH (08:39)
[2017-02-10] MEDS: SERTRALINE HCL 50 MG TABLET PO SCH (08:40)
[2017-02-10] MEDS: oxyCODONE IR immediate release 5 MG CAPSULE PO PRN (10:01)
--- NOTE | 2017-02-10 10:20 | NUR ---
Dr. Frausto with an order to D/C hold and D/C today. Pt. without distress, denies suicidal and homicidal. Dr. Tracy made aware of the discharge and said ok for discharge and reconciled meds. Addendum: 02/10/17 at 1042 by ALEX BAILEY RN To follow up with psych and medical doctors. Oscar jarvis, discharge papers ready and kath signed the discharge papers.
--- NOTE | 2017-02-10 13:45 | NUR ---
PT. LEFT THE UNIT VIA A TAXI WITH BELONGINGS, INSTRUCTED ON MEDS TO CONTINUE AT HOME AND VERBALIZES UNDERSTANDING AND ADVISED TO MAKE A FOLLOW UP WITH HIS PSYCH AND MEDICAL DOCTORS AND AGREED. LEFT THE UNIT WITHOUT DISTRESS, AMBULATORY AND ON STABLE CONDITION AND ESCORTED BY STAFF TO THE LOBBY. V/S TAKEN: BP 140/80, NM 90, RR 20, OXYGEN SAT 99% AND TEMP. 98.1.
--- NOTE | 2017-02-10 13:45 | NUR ---
Discharge note: Discharged back home [facility] [address], [place] [address]; [phone] via taxi. Daughter, Miranda,was notified via voicemail. Pt. was provided a resource to [facility] [address] [facility] [address], [place] [address] and he may also follow up with Dr. Frausto [phone]. Pt. was provided resources to drug and alcohol outpatient treatment centers and to Marijuana anonymous o Sundays 7:30 p.m. PDT for 90 minutes sessions in [address] [address]. Pt. was also provided with discharge instructions. All discharge paperwork has been signed. Pt. was calm and cooperative, denied suicidal/homicidal ideations. Pt's mood appeared to be happy, reporting that he felt much better.
== END 2017-02-10 13:45 | disposition home or self-care (01) | DRG 885 ==
LOC: ER 13:11 → GPS 18:49
PROVIDERS: ADMIT Psychiatry & Neurology Psychiatry; ATTEND Family Medicine
DX: F33.2 Major depressive disorder, recurrent severe without psychotic features (principal); F12.90 Cannabis use, unspecified, uncomplicated; E87.6 Hypokalemia; F17.210 Nicotine dependence, cigarettes, uncomplicated; J44.9 Chronic obstructive pulmonary disease, unspecified; M19.90 Unspecified osteoarthritis, unspecified site; G89.4 Chronic pain syndrome; Z82.49 Family history of ischemic heart disease and other diseases of the circulatory system; F29 Unspecified psychosis not due to a substance or known physiological condition; F43.10 Post-traumatic stress disorder, unspecified; F11.10 Opioid abuse, uncomplicated; F25.9 Schizoaffective disorder, unspecified; Z91.81 History of falling
CPT/HCPCS: 36415; 71010-TC; 80048-TC; 80053-TC; 80061-TC; 80076-TC; 80305; 81000-TC; 84484-TC; 85025-TC; 87081-TC; A4606; G0480; G6039-TC; Q0163; Z7610

== ENCOUNTER 2017-07-29 09:29 | Inpatient (IN) | payer MEDICARE, MEDICAID ==
[~2017-07-29] VITALS: Ht 175.3 cm; Wt 70.3 kg
--- NOTE | 2017-07-29 09:35 | NUR ---
AAOX3, CAME TO ER C/O SUICIDAL THOUGHT WITH NO PLAN AT THIS MOMENT. SKIN IS WARM AND DRY. RESP IS EVEN AND UNLABORED WITH NAD NOTED. AWAITING MD FOR EVAL.
--- NOTE | 2017-07-29 10:22 | NUR ---
CHAMP RN,FORENSIC TECHNICIAN CALLED FOR EVAL
[2017-07-29] MEDS ORDERED: CLON0.5T PO (10:25)
[2017-07-29 10:30] LABS: BASOPHILS # (AUTO) 0.1 /CMM (0.0-0.2); BASOPHILS % (AUTO) 0.7 % (0.0-2.0); EOSINOPHILS % (AUTO) 0.2 % (0.0-6.0); HEMATOCRIT 40 % (39-51); HEMOGLOBIN 13.5 g/dL (13.5-17.5); LYMPHOCYTES # (AUTO) 1.4 /CMM (0.8-4.8); LYMPHOCYTES % (AUTO) 17.4 % (20.0-44.0); MEAN CORPUSCULAR HEMOGLOBIN 29 PG (26.0-33.0); MEAN CORPUSCULAR HGB CONC 34 g/dl (31.0-36.0); MEAN CORPUSCULAR VOLUME 86 fL (80-96); MONOCYTES # (AUTO) 0.4 /CMM (0.1-1.30); MONOCYTES % (AUTO) 4.6 % (2.0-12.0); NEUTROPHILS # (AUTO) 6.4 /CMM (1.8-8.9); NEUTROPHILS % (AUTO) 77.1 % (43.0-81.0); PLATELET COUNT (AUTO) 367 /CMM (150-450); RDW COEFFICIENT OF VARIATION 18.4 (11.5-15.0); WHITE BLOOD COUNT (AUTO) 8.3 K/uL (4.3-11.0)
[2017-07-29 10:34] LABS: APPEARANCE,URINE CLEAR (CLEAR); BILIRUBIN,URINE NEGATIVE (NEGATIVE); BLOOD, URINE NEGATIVE Ery/uL (NEGATIVE); COLOR,URINE YELLOW (YELLOW); KETONES,URINE NEGATIVE (NEGATIVE); LEUKOCYTE ESTERASE ,URINE NEGATIVE (NEGATIVE); NITRITE, URINE NEGATIVE (NEGATIVE); PH,URINE 6.5 (5.0-8.0); PROTEIN,URINE NEGATIVE (NEGATIVE); UGLUCOSE NEGATIVE (NEGATIVE); UROBILINOGEN,URINE 0.2 EU/dL (0.2)
[2017-07-29 10:47] LABS: CALCIUM, SERUM 8.5 mg/dL (8.5-10.1); CARBON DIOXIDE 27 mmol/L (21-32); CHLORIDE 104 mmol/L (98-107); CREATININE 0.9 mg/dL (0.6-1.3); GLUCOSE 106 mg/dL (74-106); POTASSIUM 3.6 mmol/L (3.5-5.1); SODIUM SERUM 138 mmol/L (136-145); UREA NITROGEN, BLOOD 15 mg/dL (7-18)
[2017-07-29 10:53] LABS: ALANINE AMINOTRANSFERASE 58 U/L (12-78); ALBUMIN 3.3 g/dL (3.4-5.0); ALKALINE PHOSPHATASE 85 U/L (46-116); ASPARTATE AMINOTRANSFERASE 31 U/L (15-37); BILIRUBIN,DIRECT 0.1 mg/dL (0.0-0.2); BILIRUBIN,TOTAL 0.4 mg/dL (0.2-1.0); TOTAL PROTEIN, SERUM 6.5 g/dL (6.4-8.2)
[2017-07-29 10:54] LABS: ACETAMINOPHEN 0 ug/ml (10-30); ALCOHOL, BLOOD < 3 mg/dL (0-0); SALICYLATE 2.5 mg/dL (2.8-20.0)
--- NOTE | 2017-07-29 11:59 | NUR ---
REPORT GIVEN TO HUSEYIN JOHNSON FOR [facility]
--- NOTE | 2017-07-29 15:49 | NUR ---
ADMITTED THIS 66Y/O MALE FROM THE ED. PATIENT ARRIVED TO THE FLOOR IN THE WHEELCHAIR AT 1230. PATIENT IS ON 51/50 HOLD FOR DTS DUE TO VERBALIZATION OF INCREASED ANXIETY AND SUICIDAL IDEATION. UPON FACE TO FACE ASSESSMENT PATIENT IS A/OX4, DEPRESSED, VERBALIZED SOME VAGUE SI, HOWEVER, DENIED ANY PLAN WHILE IN THE HOSPITAL. PATIENT'S BELONGINGS CHECKED FOR CONTRABAND, PATIENT SIGNED ADMITTING PAPERS. UPPER BODY CHECK DID NOT REVEAL ANY SKIN PROBLEMS, PATIENT REFUSED FULL BODY CHECK. DR. DE LA FUENTE CALLED, ADMITTING ORDERS OBTAINED AND CARRIED OUT. DR. ARDON MADE AWARE TO RECONCILE HOME MEDICATIONS. PATIENT PROVIDED WITH CALM AND SAFE ENVIRONMENT, PATIENT'S VS STABLE, CONTINUE TO MONITOR THE PATIENT.
--- NOTE | 2017-07-29 15:53 | NUR ---
TYLENOL 650MG ADMINISTERED PO FOR C/O SY.
[2017-07-29 16:09] VITALS: BP 148/88
[2017-07-29 20:00] VITALS: BP 137/74
--- NOTE | 2017-07-30 00:15 | NUR ---
Pt has been anxious, paranoid, delusional (persecutory), & preoccupied with meds. He endorses on & off auditory hallucinations but does not elaborate further.
[2017-07-30 07:08] LABS: CHOLESTEROL 201 mg/dL (<200); HDL CHOLESTEROL 85 mg/dL (40-60); LDL 104 mg/dL (0-99); TRIGLYCERIDES 95 mg/dL (30-150)
[2017-07-30 07:13] LABS: ALBUMIN 3.6 g/dL (3.4-5.0); BILIRUBIN,TOTAL 0.4 mg/dL (0.2-1.0); CALCIUM, SERUM 8.8 mg/dL (8.5-10.1); CREATININE 0.8 mg/dL (0.6-1.3); POTASSIUM 3.7 mmol/L (3.5-5.1); TOTAL PROTEIN, SERUM 7.1 g/dL (6.4-8.2)
[2017-07-30 08:07] VITALS: BP 141/82
--- NOTE | 2017-07-30 09:43 | NUR ---
OUS-TR-[id number]: GAVE BENADRYL 25 MG PO DUE TO ITCHINESS UPON PT REQUEST AND WILL CONTINUE TO MONITOR FOR EFFECTIVENESS OF MEDICATION
--- NOTE | 2017-07-30 12:56 | NUR ---
KBO-WP-QQDEM: GAVE ATIVAN 0.5 MG PO DUE TO SEVERE ANXIETY UPON PT REQUEST AND WILL CONTINUE TO MONITOR FOR EFFECTIVENESS OF MEDICATION
[2017-07-30 16:00] VITALS: BP 135/80
--- NOTE | 2017-07-30 17:06 | NUR ---
EAT-KO-MYAMA: GAVE BENADRYL 25 MG PO DUE TO ITCHINESS UPON PT REQUEST AND WILL CONTINUE TO MONITOR FOR EFFECTIVENESS OF MEDICATION
--- NOTE | 2017-07-30 17:40 | NUR ---
RVP-[id number]: NOTIFIED DR. AMARJIT HART FOR PHYSICIAN CONSULT AND DR. AMARJIT HART WILL BE ON VACATION UNTIL 2016 AND SHE HAS NO COVERAGE.
--- NOTE | 2017-07-30 18:56 | NUR ---
[id number]: GAVE ATIVAN 0.5 MG PO DUE TO SEVERE ANXIETY UPON PT REQUEST AND WILL CONTINUE TO MONITOR FOR EFFECTIEVENESS OF MEDICATION
[2017-07-30 19:55] VITALS: BP 154/99
--- NOTE | 2017-07-30 20:00 | NUR ---
A/a /o times 2 slapping himself, states pain meds don't help him, but requesting tylenol.
--- NOTE | 2017-07-31 07:44 | NUR ---
JRF-HR-[id number]: GAVE MILK OF MAGNESIA 30 ML PO DUE TO CONSTIPATION UPON PT REQUEST AND WILL CONTINUE TO MONITOR FOR EFFECTIVENESS OF MEDICATION
[2017-07-31 08:00] VITALS: BP 148/80
--- NOTE | 2017-07-31 08:23 | NUR ---
EJX-VE-[id number]: GAVE BENADRYL 25 MG PO DUE TO ITCHINESS UPON PT REQUEST AND WILL CONTINUE TO MONITOR FOR EFFECTIVENESS OF MEDICATION
--- NOTE | 2017-07-31 13:55 | NUR ---
UKJ-FJ-[id number]: GAVE DULCOLAX SUPP RECT 10 MG PO DUE TO CONSTIPATION UPON PT REQUEST AND WILL CONTINUE TO MONITOR FOR EFFECTIVENESS OF MEDICATION
[2017-07-31 16:00] VITALS: BP 138/60
--- NOTE | 2017-07-31 18:51 | NUR ---
GAVE BENADRYL 25 MG PO DUE TO ITCHINESS UPON PT REQUEST AND WILL CONTINUE TO MONITOR FOR EFFECTIVENESS OF MEDICATION
[2017-07-31 20:40] VITALS: BP 130/71
--- NOTE | 2017-08-01 05:47 | NUR ---
21:17: Patient c/o generalized body pain ,he requested and was given Oxycontin 40 mg PO with good effect after 1 hour of reassessment. 05:10:Patient c/o body itchiness,requested and given Benadryl 25 mg PO .The medication given is with good effect .
[2017-08-01 08:16] VITALS: BP 131/73
--- NOTE | 2017-08-01 09:35 | NUR ---
Initial Discharge Note: Patient's adress is [address] [place] [address] . Patient reports living alone and returning home upon discharge.Although patient named his daughter, Luisa as his contcat/support system, he stated, "I don't want anybody to bother her for information." SW will follow up. SW will help form a safe and proper discharge.
--- NOTE | 2017-08-01 10:56 | NUR ---
XFZ-RT-APZCI: GAVE OXYCONTIN 40 MG PO DUE TO GENERALIZED PAIN 06/01 UPON PT REQUEST AND WILL CONTINUE TO MONITOR FOR EFFECTIVENESS OF MEDICATION
--- NOTE | 2017-08-01 15:34 | NUR ---
LUT-HJ-[id number]: GAVE BENADRYL 25 MG PO DUE TO ITCHINESS AND WILL CONTINUE TO MONITOR FOR EFFECTIVENESS OF MEDICATION
[2017-08-01 15:59] VITALS: BP 128/76
--- NOTE | 2017-08-01 17:59 | NUR ---
IEF-WH-XHIGO: GAVE ATIVAN 0.5 MG PO DUE TO SEVERE ANXIETY UPON PT REQUEST AND WILL CONTINUE TO MONITOR FOR EFFECTIVENESS OF MEDICATION
[2017-08-01 20:25] VITALS: BP 147/78
--- NOTE | 2017-08-01 21:37 | NUR ---
GPS/RN NOTE: C/O GENERALIZED BODY PAIN, 7/10 ON PAIN SCALE, OXYCONTIN 40 MG PO GIVEN.
--- NOTE | 2017-08-01 22:05 | NUR ---
GPS/RN NOTE: C/O INSOMNIA, TEMAZEPAM 30 MG PO GIVEN.
--- NOTE | 2017-08-02 05:25 | NUR ---
GPS/RN NOTE: AWAKE, UP TO THE NURSE'S STATION C/O GENERALIZED BODY PAIN, 6/10 ON PAIN SCALE, OXYCONTIN 40 MG TAB PO GIVEN.
[2017-08-02 08:00] VITALS: BP 120/67
[2017-08-02 16:52] VITALS: BP 126/70
--- NOTE | 2017-08-02 19:30 | NUR ---
GPS RN NOTE, RECEIVED PATIENT AWAKE AND IN BED, PATIENT HAS A COMPLAINT OF LOWER BACK PAIN AT 7 OUT 10 ON THE PAIN SCALE. PATIENT IS TAKING ORAL PAIN MEDICATION FOR THIS PAIN. PATIENT IS DISPLAYING NO S/S OF APPARENT DISTRESS AT THIS TIME. PATIENT BREATHING IS UNLABORED WITH EQUAL RISE AND FALL OF THE CHEST. PATIENT IS ALERT AND ORIENTED X 4 ON ROOM AIR WITH A SPO2 OF 97%. PATIENT IS AMBULATORY, MED COMPLIANT, MED SEEKING, DISORGANIZED, AND NEEDS REORIENTATION. PATIENT DENIES SUICIDE IDEATIONS AND HOMICIDAL IDEATIONS AT THIS TIME. PATIENT EDUCATED ON THE USE OF THE CALL CANTU. PATIENT BED SIDE RAILS UP X2 FOR SAFETY, BED IS LOCKED AND LOW, AND I WILL CONTINUE TO MONITOR AND MAINTAIN SAFETY Q15MIN WITH THE HELP OF STAFF.
[2017-08-02 20:10] VITALS: BP 129/75
--- NOTE | 2017-08-02 21:56 | NUR ---
GPS RN NOTE, PATIENT HAS A COMPLAINT OF LOWER BACK PAIN AT 7 OUT 10 ON THE PAIN SCALE AND IS REQUESTING OXYCONTIN AT THIS TIME. PATIENT VITAL SIGNS ARE STABLE. GAVE OXYCONTIN 40MG PO Q8HR PRN ORDERED. WILL REASSESS PAIN AND I WILL CONTINUE TO MONITOR THIS PATIENT.
--- NOTE | 2017-08-02 22:39 | NUR ---
GPS RN NOTE, PATIENT HAS A COMPLAINT OF NOT BEING ABLE TO SLEEP AND IS REQUESTING RESTORIL. PATIENT VITAL SIGNS ARE STABLE. GAVE RESTORIL 30 MG PO HS ORDERED. WILL REASSESS FOR INSOMNIA AND I WILL CONTINUE TO MONITOR THIS PATIENT.
--- NOTE | 2017-08-03 07:30 | NUR ---
Spoke to the pt. this morning and pt. said he is feeling ok, denies suicidal and homicidal and said he is still depressed.
[2017-08-03 08:28] VITALS: BP 127/80
--- NOTE | 2017-08-03 12:07 | NUR ---
Discharge Note: Patient will be discharged back home to [address] [place] [address] via taxi at 2pm. Patient did not want his daughter Miranda [phone] to be notified, stating that he wanted to call her himself. Patient is agreeable with this plan. Patient will follow up with his chandelier maker Dr. Ludmila Mcclendonzoie [facility] [address] [place] [address] on 08/08/17 at 10am. rigging worker also made arrangements with a psychiatrist at [facility] [address] [id number] , who stated that they will call patient and arrange for an appointment next week. Patient was provided referrals for [facility] [address] [facility] and was encouraged to present on Monday, 08/04 at 9am for intake. Patient was also encouraged to present at a Nicotine Anonymous meeting [address] [facility] room [address] [place] [address] on 08/10 at 7pm. Patient stated that he attended an AA group at [address] [place] [address] and was encouraged to present at 8:30pm on Monday. Patient was provided information for [facility] [address] [place] [address] because patient stated he wanted to get involved in social activities.
--- NOTE | 2017-08-03 12:07 | NUR ---
PT. WITH CERTIFICATION REVIEW HEARING WITH THE HEARING REFEREE, ADVOCATE AND HOSPITAL STAFF. AFTER CONSIDERING ALL THE EVIDENCE PRESENTED, THE HEARING REFEREE FINDS THAT : THERE IS NOT PROBABLE CAUSE TO BELIEVE THAT THE PERSON, A RESULT OF A MENTAL DISORDER IS A DANGER TO SELF, A DANGER TO OTHERS OR GRAVELY DISABLED. THE PATIENT MUST BE RELEASED OR REMAIN AT THE FACILITY ON A VOLUNTARY BASIS.
--- NOTE | 2017-08-03 12:31 | NUR ---
CALLED DR. TORRE AND WAS NOTIFIED ABOUT THE RESULT OF THE CERTIFICATION REVIEW HEARING AND PT. WANTED TO BE DISCHARGED. DR. TORRE ORDERED TO D/C PT. TODAY. PT DENIES SUICIDAL AND HOMICIDAL AND TO FOLLOW UP WITH PSYCH AND MEDICAL DOCTORS.
--- NOTE | 2017-08-03 15:30 | NUR ---
GPS RN: PATIENT DISCHARGED HOME AT [address] [facility] [place], [address]. PATIENT'S CONDITION IS STABLE FOR DISCHARGE, VS STABLE, PATIENT DENIED ANY SI/HI/AVH AT THE TIME OF DISCHARGE, NO BEHAVIORAL ISSUES NOTED. ALL BELONGINGS RETURNED TO THE PATIENT, PROPERTY MANAGEMENT FORM SIGNED. PATIENT PROVIDED WITH EDUCATIONAL EXIT CARE, REFERRALS TO THE PSYCHIATRIST AND FEED PROJECT ENGINEER. PATIENT ALSO PROVIDED WITH PRESCRIPTIONS AND TAXI VOUCHER. LEFT THE UNIT ACCOMPANIED BY STAFF MEMBER.
== END 2017-08-03 15:35 | disposition home or self-care (01) | DRG 885 ==
LOC: ER 09:33 → GPS 11:52
PROVIDERS: ADMIT Psychiatry & Neurology Psychiatry; ATTEND Internal Medicine
DX: F33.2 Major depressive disorder, recurrent severe without psychotic features (principal); F11.20 Opioid dependence, uncomplicated; J44.9 Chronic obstructive pulmonary disease, unspecified; R45.851 Suicidal ideations; F17.210 Nicotine dependence, cigarettes, uncomplicated; E78.5 Hyperlipidemia, unspecified; G89.29 Other chronic pain; Z79.899 Other long term (current) drug therapy; F19.90 Other psychoactive substance use, unspecified, uncomplicated
CPT/HCPCS: 36415; 80048-TC; 80053-TC; 80061-TC; 80076-TC; 80305; 81000-TC; 85025-TC; A4606; G0480; Q0163; Z7610

== ENCOUNTER 2017-08-31 08:42 | Inpatient (IN) | payer MEDICARE, MEDICAID ==
[~2017-08-31] VITALS: Ht 175.3 cm; Wt 69.9 kg
[~2017-08-31 08:42] MED LIST changes: -TEMA30CA5 PO
[2017-08-31] MEDS ORDERED: ONDANSETRON HCL/PF 4 MG/2 ML VIAL ONE (09:39)
[2017-08-31] MEDS ORDERED: PANTOPRAZOLE 40 MG VIAL ONE (09:39)
[2017-08-31 09:46] LABS: APPEARANCE,URINE Clear (CLEAR); BILIRUBIN,URINE MODERATE (NEGATIVE); BLOOD, URINE Negative Ery/uL (NEGATIVE); KETONES,URINE 15 (NEGATIVE); LEUKOCYTE ESTERASE ,URINE Negative (NEGATIVE); NITRITE, URINE Negative (NEGATIVE); PROTEIN,URINE 30 mg/dl (NEGATIVE); UGLUCOSE Negative (NEGATIVE); UROBILINOGEN,URINE 0.2 EU/dL (0.2)
[2017-08-31 09:59] LABS: COLOR,URINE DARK YELLOW (YELLOW)
[2017-08-31 10:00] LABS: BACTERIA,URINE Few /HPF (None Seen); SQUAMOUS EPITHELIAL CELL,UR Rare /HPF (None Seen)
[2017-08-31] MEDS ORDERED: ONDANSETRON HCL/PF 4 MG/2 ML VIAL IVP ONE (10:00)
[2017-08-31] MEDS ORDERED: PANTOPRAZOLE 40 MG VIAL IV ONE (10:00)
[2017-08-31] MEDS ORDERED: IV NS 0.9% 1,000 ML BAG IV ONE (10:00)
[2017-08-31 10:24] LABS: BASOPHILS % (AUTO) 0.4 % (0.0-2.0); EOSINOPHILS % (AUTO) 0.1 % (0.0-6.0); HEMATOCRIT 43 % (39-51); LYMPHOCYTES # (AUTO) 0.7 /CMM (0.8-4.8); MEAN CORPUSCULAR HEMOGLOBIN 28 PG (26.0-33.0); MEAN CORPUSCULAR HGB CONC 33 g/dl (31.0-36.0); MEAN CORPUSCULAR VOLUME 87 fL (80-96); MONOCYTES # (AUTO) 0.4 /CMM (0.1-1.30); MONOCYTES % (AUTO) 3.6 % (2.0-12.0); NEUTROPHILS # (AUTO) 10.5 /CMM (1.8-8.9); NEUTROPHILS % (AUTO) 89.9 % (43.0-81.0); PLATELET COUNT (AUTO) 229 /CMM (150-450); RDW COEFFICIENT OF VARIATION 16.3 (11.5-15.0); RED BLOOD CELL COUNT(AUTO) 4.97 MIL/uL (4.5-6.0); WHITE BLOOD COUNT (AUTO) 11.6 K/uL (4.3-11.0)
[2017-08-31 10:33] LABS: CALCIUM, SERUM 9.5 mg/dL (8.5-10.1); CARBON DIOXIDE 26 mmol/L (21-32); CHLORIDE 94 mmol/L (98-107); CREATININE 0.9 mg/dL (0.6-1.3); GLUCOSE 109 mg/dL (74-106); POTASSIUM 3.3 mmol/L (3.5-5.1); SODIUM SERUM 130 mmol/L (136-145); UREA NITROGEN, BLOOD 9 mg/dL (7-18)
[2017-08-31 10:37] LABS: INR 0.87 (0.87-1.13)
[2017-08-31 10:40] LABS: ALANINE AMINOTRANSFERASE 22 U/L (12-78); ALBUMIN 3.8 g/dL (3.4-5.0); ALCOHOL, BLOOD < 3 mg/dL (0-0); ALKALINE PHOSPHATASE 90 U/L (46-116); ASPARTATE AMINOTRANSFERASE 18 U/L (15-37); BILIRUBIN,DIRECT 0.2 mg/dL (0.0-0.2); BILIRUBIN,TOTAL 0.7 mg/dL (0.2-1.0); TOTAL PROTEIN, SERUM 7.5 g/dL (6.4-8.2)
[2017-08-31 10:41] LABS: ACETAMINOPHEN 0 ug/ml (10-30); LIPASE 3113 U/L (73-393); SALICYLATE 2.2 mg/dL (2.8-20.0); TROPONIN I < 0.017 ng/mL (0.00-0.056)
[2017-08-31] MEDS ORDERED: TEMA30CA5 PO (11:29)
[2017-08-31] MEDS ORDERED: ONDANSETRON HCL/PF 4 MG/2 ML VIAL IVP PRN (13:30)
[2017-08-31 14:00] VITALS: BP 126/84
[2017-08-31] MEDS: IV NS 0.9% 1,000 ML IV PRN ×2 (14:24→21:38)
[2017-08-31] MEDS: MORPHINE SULFATE INJ 10 MG/ML DISP.SYRIN IV PRN ×2 (14:28→21:35)
[2017-08-31 16:00] VITALS: BP 128/84
[2017-08-31 20:00] VITALS: BP 148/85
[2017-08-31 22:00] VITALS: BP 148/85
[2017-09-01] VITALS: BP 114/72
[2017-09-01 04:00] VITALS: BP 141/89
[2017-09-01] MEDS: IV NS 0.9% 1,000 ML IV PRN ×2 (04:50→15:28)
[2017-09-01 07:35] LABS: BASOPHILS % (AUTO) 0.5 % (0.0-2.0); EOSINOPHILS # (AUTO) 0.1 /CMM (0.0-0.7); EOSINOPHILS % (AUTO) 1.9 % (0.0-6.0); HEMATOCRIT 37 % (39-51); HEMOGLOBIN 12.5 g/dL (13.5-17.5); LYMPHOCYTES # (AUTO) 1.1 /CMM (0.8-4.8); MEAN CORPUSCULAR HEMOGLOBIN 29 PG (26.0-33.0); MEAN CORPUSCULAR HGB CONC 34 g/dl (31.0-36.0); MEAN CORPUSCULAR VOLUME 87 fL (80-96); MONOCYTES # (AUTO) 0.7 /CMM (0.1-1.30); NEUTROPHILS # (AUTO) 4.5 /CMM (1.8-8.9); NEUTROPHILS % (AUTO) 69.6 % (43.0-81.0); PLATELET COUNT (AUTO) 184 /CMM (150-450); RDW COEFFICIENT OF VARIATION 17.7 (11.5-15.0); RED BLOOD CELL COUNT(AUTO) 4.26 MIL/uL (4.5-6.0); WHITE BLOOD COUNT (AUTO) 6.5 K/uL (4.3-11.0)
[2017-09-01 07:52] LABS: ALBUMIN 2.5 g/dL (3.4-5.0); BILIRUBIN,TOTAL 0.2 mg/dL (0.2-1.0); CALCIUM, SERUM 8.2 mg/dL (8.5-10.1); CREATININE 0.7 mg/dL (0.6-1.3); MAGNESIUM 1.6 mg/dL (1.8-2.4); PHOSPHORUS 3.4 mg/dL (2.5-4.9); POTASSIUM 3.4 mmol/L (3.5-5.1); TOTAL PROTEIN, SERUM 5.6 g/dL (6.4-8.2)
[2017-09-01 08:00] VITALS: BP 136/73
[2017-09-01 08:28] LABS: THYROID STIMULATING HORMONE 0.896 uIU/mL (0.358-3.74)
[2017-09-01] MEDS: PANTOPRAZOLE 40 MG VIAL IV SCH (08:33)
[2017-09-01 12:00] VITALS: BP 159/87
[2017-09-01] MEDS: Magnesium 1GM/D5W 100ML PREMIX 100 ML IV SCH ×2 (13:03→13:55)
[2017-09-01 16:00] VITALS: BP 150/90
[2017-09-01] MEDS: POTASSIUM CL. PREMIX PERIPHER. 50 ML IV SCH ×2 (18:47→19:57)
[2017-09-01 20:00] VITALS: BP_SYST 133; BP_DIAS 87; BP_DIAS 90
[2017-09-01] MEDS: MORPHINE SULFATE INJ 10 MG/ML DISP.SYRIN IV PRN (22:01)
[2017-09-02] VITALS: BP 137/87
[2017-09-02 04:00] VITALS: BP_SYST 132; BP_SYST 147; BP_DIAS 73; BP_DIAS 88
[2017-09-02] MEDS: IV NS 0.9% 1,000 ML IV PRN (06:14)
[2017-09-02 07:45] LABS: BASOPHILS % (AUTO) 0.5 % (0.0-2.0); EOSINOPHILS # (AUTO) 0.2 /CMM (0.0-0.7); EOSINOPHILS % (AUTO) 3.5 % (0.0-6.0); HEMATOCRIT 34 % (39-51); HEMOGLOBIN 11.4 g/dL (13.5-17.5); LYMPHOCYTES # (AUTO) 1.5 /CMM (0.8-4.8); LYMPHOCYTES % (AUTO) 28.7 % (20.0-44.0); MEAN CORPUSCULAR HEMOGLOBIN 29 PG (26.0-33.0); MEAN CORPUSCULAR HGB CONC 33 g/dl (31.0-36.0); MEAN CORPUSCULAR VOLUME 87 fL (80-96); MONOCYTES # (AUTO) 0.6 /CMM (0.1-1.30); MONOCYTES % (AUTO) 11.8 % (2.0-12.0); NEUTROPHILS # (AUTO) 2.8 /CMM (1.8-8.9); NEUTROPHILS % (AUTO) 55.5 % (43.0-81.0); PLATELET COUNT (AUTO) 194 /CMM (150-450); RDW COEFFICIENT OF VARIATION 17.1 (11.5-15.0); RED BLOOD CELL COUNT(AUTO) 3.95 MIL/uL (4.5-6.0); WHITE BLOOD COUNT (AUTO) 5.1 K/uL (4.3-11.0)
[2017-09-02 08:00] VITALS: BP 123/71
[2017-09-02 08:05] LABS: CALCIUM, SERUM 8.4 mg/dL (8.5-10.1); CREATININE 0.7 mg/dL (0.6-1.3); MAGNESIUM 1.9 mg/dL (1.8-2.4); PHOSPHORUS 2.9 mg/dL (2.5-4.9); POTASSIUM 3.4 mmol/L (3.5-5.1)
[2017-09-02 08:41] VITALS: BP 123/71
[2017-09-02] MEDS: PANTOPRAZOLE 40 MG VIAL IV SCH (09:02)
[2017-09-02] MEDS ORDERED: Potassium Chloride 10 MEQ in IV D5W 50 ML IV SCH (11:00)
[2017-09-02] MEDS ORDERED: POTASSIUM CHLORIDE 20 MEQ TAB.PRT.SR PO ONE (12:15)
[2017-09-02] MEDS: HYDROMORPHONE INJ 2 MG/ML DISP.SYRIN IV PRN ×2 (14:32→20:49)
[2017-09-02 16:00] VITALS: BP 147/88
[2017-09-02] MEDS: LORAZEPAM 0.5 MG TABLET PO PRN ×2 (18:54→23:53)
[2017-09-02 20:00] VITALS: BP 132/88
[2017-09-02] MEDS: TEMAZEPAM 15 MG CAPSULE PO PRN (22:03)
[2017-09-03] VITALS: BP 132/88
[2017-09-03] MEDS: IV NS 0.9% 1,000 ML IV PRN (01:34)
[2017-09-03 04:00] VITALS: BP 129/75
[2017-09-03 08:00] VITALS: BP 127/72
[2017-09-03] MEDS: PANTOPRAZOLE 40 MG VIAL IV SCH (10:16)
[2017-09-03] MEDS: HYDROMORPHONE INJ 2 MG/ML DISP.SYRIN IV PRN ×3 (10:17→21:05)
[2017-09-03 10:43] VITALS: BP 127/72
[2017-09-03] MEDS ORDERED: ANESTHESIA TRAY IN PYXIS 1 EA TRAY MC ONE (11:23)
[2017-09-03] MEDS: LORAZEPAM 0.5 MG TABLET PO PRN ×2 (13:26→22:25)
[2017-09-03 20:00] VITALS: BP 158/94
[2017-09-03] MEDS: TEMAZEPAM 15 MG CAPSULE PO PRN (21:02)
[2017-09-04] MEDS: HYDROMORPHONE INJ 2 MG/ML DISP.SYRIN IV PRN ×5 (01:59→22:33)
[2017-09-04 04:00] VITALS: BP 133/67
[2017-09-04 07:21] LABS: BASOPHILS % (AUTO) 0.3 % (0.0-2.0); EOSINOPHILS # (AUTO) 0.2 /CMM (0.0-0.7); EOSINOPHILS % (AUTO) 3.7 % (0.0-6.0); HEMATOCRIT 37 % (39-51); HEMOGLOBIN 12.3 g/dL (13.5-17.5); LYMPHOCYTES # (AUTO) 1.3 /CMM (0.8-4.8); LYMPHOCYTES % (AUTO) 23.4 % (20.0-44.0); MEAN CORPUSCULAR HEMOGLOBIN 29 PG (26.0-33.0); MEAN CORPUSCULAR HGB CONC 33 g/dl (31.0-36.0); MEAN CORPUSCULAR VOLUME 87 fL (80-96); MONOCYTES # (AUTO) 0.5 /CMM (0.1-1.30); NEUTROPHILS # (AUTO) 3.4 /CMM (1.8-8.9); NEUTROPHILS % (AUTO) 63.6 % (43.0-81.0); PLATELET COUNT (AUTO) 256 /CMM (150-450); RDW COEFFICIENT OF VARIATION 17.2 (11.5-15.0); RED BLOOD CELL COUNT(AUTO) 4.24 MIL/uL (4.5-6.0); WHITE BLOOD COUNT (AUTO) 5.4 K/uL (4.3-11.0)
[2017-09-04 07:29] LABS: CALCIUM, SERUM 9.2 mg/dL (8.5-10.1); CREATININE 0.8 mg/dL (0.6-1.3); PHOSPHORUS 4.1 mg/dL (2.5-4.9); POTASSIUM 3.9 mmol/L (3.5-5.1)
[2017-09-04 08:00] VITALS: BP 148/68
[2017-09-04] MEDS: LORAZEPAM 0.5 MG TABLET PO PRN ×2 (08:29→17:10)
[2017-09-04] MEDS: PANTOPRAZOLE 40 MG VIAL IV SCH (08:30)
[2017-09-04 10:35] LABS: EOSINOPHILS % (MANUAL) 2 % (0-4); LYMPHOCYTES % (MANUAL) 17 % (16-48); MONOCYTES % (MANUAL) 6 % (0-11.0); NEUTROPHILS % (MANUAL) 75 (42-76)
[2017-09-04 12:00] VITALS: BP 145/87
[2017-09-04 16:00] VITALS: BP 101/70
[2017-09-04] MEDS: IV NS 0.9% 1,000 ML IV PRN (17:19)
[2017-09-04 20:00] VITALS: BP 158/97
[2017-09-04] MEDS: TEMAZEPAM 15 MG CAPSULE PO PRN (20:56)
[2017-09-05] MEDS: LORAZEPAM 0.5 MG TABLET PO PRN ×2 (00:57→09:30)
[2017-09-05] MEDS: IV NS 0.9% 1,000 ML IV PRN (03:41)
[2017-09-05 04:00] VITALS: BP 124/67
[2017-09-05 04:06] VITALS: BP 124/67
[2017-09-05 07:19] LABS: ALBUMIN 2.8 g/dL (3.4-5.0); BILIRUBIN,DIRECT 0.1 mg/dL (0.0-0.2); BILIRUBIN,TOTAL 0.2 mg/dL (0.2-1.0); TOTAL PROTEIN, SERUM 5.9 g/dL (6.4-8.2)
[2017-09-05 07:22] LABS: CALCIUM, SERUM 8.7 mg/dL (8.5-10.1); CREATININE 0.6 mg/dL (0.6-1.3); MAGNESIUM 1.8 mg/dL (1.8-2.4); PHOSPHORUS 3.7 mg/dL (2.5-4.9); POTASSIUM 3.7 mmol/L (3.5-5.1)
[2017-09-05 07:49] LABS: BASOPHILS % (AUTO) 0.2 % (0.0-2.0); EOSINOPHILS # (AUTO) 0.2 /CMM (0.0-0.7); EOSINOPHILS % (AUTO) 4.1 % (0.0-6.0); HEMATOCRIT 38 % (39-51); HEMOGLOBIN 12.3 g/dL (13.5-17.5); LYMPHOCYTES # (AUTO) 1.6 /CMM (0.8-4.8); MEAN CORPUSCULAR HEMOGLOBIN 28 PG (26.0-33.0); MEAN CORPUSCULAR HGB CONC 33 g/dl (31.0-36.0); MEAN CORPUSCULAR VOLUME 87 fL (80-96); MONOCYTES # (AUTO) 0.5 /CMM (0.1-1.30); MONOCYTES % (AUTO) 9.7 % (2.0-12.0); NEUTROPHILS # (AUTO) 2.5 /CMM (1.8-8.9); PLATELET COUNT (AUTO) 270 /CMM (150-450); RDW COEFFICIENT OF VARIATION 17.1 (11.5-15.0); RED BLOOD CELL COUNT(AUTO) 4.35 MIL/uL (4.5-6.0); WHITE BLOOD COUNT (AUTO) 4.8 K/uL (4.3-11.0)
[2017-09-05 08:00] VITALS: BP 149/90
[2017-09-05] MEDS: PANTOPRAZOLE 40 MG VIAL IV SCH (09:30)
[2017-09-05] MEDS: HYDROMORPHONE INJ 2 MG/ML DISP.SYRIN IV PRN (09:31)
[2017-09-05] MEDS ORDERED: PANT40TA2 PO (12:20)
[2017-09-05] MEDS ORDERED: ACETAMINOPHEN 325 MG TABLET PO PRN (12:30)
== END 2017-09-05 15:54 | disposition home or self-care (01) | DRG 391 ==
LOC: ER 08:43 → TELE1 13:04 → MEDSG1 09-01 13:12
PROC: 0DB58ZX Excision of Esophagus, Via Natural or Artificial Opening Endoscopic, Diagnostic (ICD-10-PCS; 2017-09-03)
PROC: 0DB68ZX Excision of Stomach, Via Natural or Artificial Opening Endoscopic, Diagnostic (ICD-10-PCS; principal; 2017-09-03 11:30)
DX: K29.00 Acute gastritis without bleeding (principal); K85.90 Acute pancreatitis without necrosis or infection, unspecified; J44.9 Chronic obstructive pulmonary disease, unspecified; F11.20 Opioid dependence, uncomplicated; E78.5 Hyperlipidemia, unspecified; F32.9 Major depressive disorder, single episode, unspecified; D64.9 Anemia, unspecified; E87.6 Hypokalemia; F12.90 Cannabis use, unspecified, uncomplicated; F17.210 Nicotine dependence, cigarettes, uncomplicated; G47.00 Insomnia, unspecified; G89.29 Other chronic pain; F43.10 Post-traumatic stress disorder, unspecified; D72.829 Elevated white blood cell count, unspecified; F19.11 Other psychoactive substance abuse, in remission
CPT/HCPCS: 36415; 76705-TC; 80048-TC; 80053-TC; 80061-TC; 80076-TC; 80305; 81000-TC; 82272-TC; 83690-TC; 83735-TC; 84100-TC; 84443-TC; 84484-TC; 85025-TC; 85730-TC; 86850-TC; 87081-TC; 88305-TC; 88313-TC; 88342; C9113; G0480; J1170; J2270; J2405; J2704; J3475; J3480; J3490; J7030; J7060; Z7610

== ENCOUNTER 2017-09-10 10:58 | Inpatient (IN) | payer MEDICARE, MEDICAID ==
[~2017-09-10] VITALS: Ht 175.3 cm; Wt 68.0 kg
[~2017-09-10 10:58] MED LIST changes: +PANT40TA2 PO; +TEMA30CA5 PO
--- NOTE | 2017-09-10 11:30 | NUR ---
BIB SELF, C/O ABDOMINAL PAIN X MONDAY, H/O PANCREATITIS SEEN HERE LAST WEEK, NAD NOTED, VSS, WAITING FOR MD MORGAN.
[2017-09-10] MEDS ORDERED: ONDANSETRON HCL/PF 4 MG/2 ML VIAL ONE (12:10)
[2017-09-10] MEDS ORDERED: ONDANSETRON HCL/PF 4 MG/2 ML VIAL IVP ONE (12:30)
[2017-09-10] MEDS ORDERED: IV NS 0.9% 1,000 ML BAG IV ONE (12:30)
[2017-09-10 13:05] LABS: BASOPHILS % (AUTO) 0.1 % (0.0-2.0); EOSINOPHILS # (AUTO) 0.1 /CMM (0.0-0.7); EOSINOPHILS % (AUTO) 1.9 % (0.0-6.0); HEMATOCRIT 43 % (39-51); HEMOGLOBIN 13.9 g/dL (13.5-17.5); LYMPHOCYTES # (AUTO) 1.7 /CMM (0.8-4.8); LYMPHOCYTES % (AUTO) 25.2 % (20.0-44.0); MEAN CORPUSCULAR HEMOGLOBIN 28 PG (26.0-33.0); MEAN CORPUSCULAR HGB CONC 32 g/dl (31.0-36.0); MEAN CORPUSCULAR VOLUME 87 fL (80-96); MONOCYTES # (AUTO) 0.4 /CMM (0.1-1.30); MONOCYTES % (AUTO) 5.6 % (2.0-12.0); NEUTROPHILS # (AUTO) 4.6 /CMM (1.8-8.9); NEUTROPHILS % (AUTO) 67.2 % (43.0-81.0); PLATELET COUNT (AUTO) 419 /CMM (150-450); RDW COEFFICIENT OF VARIATION 17.3 (11.5-15.0); RED BLOOD CELL COUNT(AUTO) 4.99 MIL/uL (4.5-6.0); WHITE BLOOD COUNT (AUTO) 6.9 K/uL (4.3-11.0)
[2017-09-10 13:19] LABS: CALCIUM, SERUM 9.6 mg/dL (8.5-10.1); CARBON DIOXIDE 26 mmol/L (21-32); CHLORIDE 104 mmol/L (98-107); CREATININE 0.8 mg/dL (0.6-1.3); GLUCOSE 87 mg/dL (74-106); POTASSIUM 3.6 mmol/L (3.5-5.1); SODIUM SERUM 138 mmol/L (136-145); UREA NITROGEN, BLOOD 13 mg/dL (7-18)
[2017-09-10 13:23] LABS: ALANINE AMINOTRANSFERASE 24 U/L (12-78); ALBUMIN 3.4 g/dL (3.4-5.0); ALCOHOL, BLOOD < 3 mg/dL (0-0); ALKALINE PHOSPHATASE 82 U/L (46-116); ASPARTATE AMINOTRANSFERASE 14 U/L (15-37); BILIRUBIN,DIRECT 0.1 mg/dL (0.0-0.2); BILIRUBIN,TOTAL 0.2 mg/dL (0.2-1.0); LIPASE 779 U/L (73-393); TOTAL PROTEIN, SERUM 7.2 g/dL (6.4-8.2)
[2017-09-10 13:24] LABS: ACETAMINOPHEN 0 ug/ml (10-30); INR 0.93 (0.87-1.13); PROTHROMBIN TIME 9.7 SECS (9.5-12.7); SALICYLATE 2.5 mg/dL (2.8-20.0)
--- NOTE | 2017-09-10 14:01 | NUR ---
PT TO CTSCAN
[2017-09-10 14:08] LABS: APPEARANCE,URINE CLEAR (CLEAR); BILIRUBIN,URINE NEGATIVE (NEGATIVE); BLOOD, URINE NEGATIVE Ery/uL (NEGATIVE); COLOR,URINE YELLOW (YELLOW); KETONES,URINE NEGATIVE (NEGATIVE); LEUKOCYTE ESTERASE ,URINE NEGATIVE (NEGATIVE); NITRITE, URINE NEGATIVE (NEGATIVE); PROTEIN,URINE NEGATIVE (NEGATIVE); UGLUCOSE NEGATIVE (NEGATIVE); UROBILINOGEN,URINE 0.2 EU/dL (0.2)
[2017-09-10] MEDS ORDERED: HYDROMORPHONE INJ 2 MG/ML DISP.SYRIN ONE (14:27)
[2017-09-10] MEDS ORDERED: HYDROMORPHONE 1 MG/1 ML DISP.SYRIN IV ONE (14:30)
[2017-09-10] MEDS ORDERED: IV NS 0.9% 1,000 ML IV PRN (14:55)
[2017-09-10] MEDS ORDERED: ACETAMINOPHEN 325 MG TABLET PO PRN (15:00)
[2017-09-10] MEDS ORDERED: ONDANSETRON HCL/PF 4 MG/2 ML VIAL IVP PRN (15:00)
[2017-09-10] MEDS ORDERED: MAG HYDROX/AL HYDROX/SIMETH 30 ML UDC PO PRN (15:00)
[2017-09-10] MEDS ORDERED: Z GUARD REMEDY 2 OZ OINT TP PRN (15:00)
[2017-09-10] MEDS ORDERED: HYDROCODONE/APAP 5/325MG 1 EACH TABLET PO PRN (15:00)
[2017-09-10] MEDS ORDERED: MAGNESIUM HYDROXIDE 30 ML UDC PO PRN (15:00)
--- NOTE | 2017-09-10 15:09 | NUR ---
M/S 203
--- NOTE | 2017-09-10 15:30 | NUR ---
REPORT GIVEN TO KATARZYNA
--- NOTE | 2017-09-10 16:30 | NUR ---
RN INITIAL NOTES PATIENT RECEIVED FROM ER. NO SOB OR DISTRESS NOTED AT THIS TIME. PATIENT DENIES PAIN AT THIS TIME. PATIENT ORIENTED TO ROOM AND CALL LIGHT. IV FLUSHED AND PATENT. BELONGINGS LIST CHECKED AND VERIFIED. PATIENT STATES THAT HE WANTS SOME RED JELLO. EXPLAINED TO THE PATIENT THAT HE CAN NOT EAT BECAUSE THE FOOD WILL MAKE HIS STOMACH HURT MORE. PATIENT STATES UNDERSTANDING, BUT STATES HE WILL BE REALLY HUNGRY LATER. REENFORCEMENT WILL BE NEEDED. BED IN A LOW POSITION. WILL CONTINUE TO MONITOR.
[2017-09-10] MEDS: IV NS 0.9% 1,000 ML IV PRN (16:50)
[2017-09-10 16:52] VITALS: BP 130/85
[2017-09-10] MEDS: HYDROMORPHONE INJ 2 MG/ML DISP.SYRIN IV PRN ×2 (17:04→21:10)
--- NOTE | 2017-09-10 19:12 | NUR ---
RN CLOSING NOTES NO SIGNIFICANT CHANGES IN PATIENT CONDITION. NO SOB OR DISTRESS NOTED AT THIS TIME. PATIENT SLEEPING, DOES NOT APPEAR TO BE IN PAIN. BED IN A LOW POSITION, CALL LIGHT WITHIN PATIENT REACH. WILL ENDORSE FOR PASQUALE.
--- NOTE | 2017-09-10 19:52 | NUR ---
RN NOTES PATIENT SITTING UP IN BED, ALERT AND ORIENTED X3, CALM AT THIS TIME, NO SOB, TOLERATING ROOM AIR, NO COMPLAIN OF ABDOMINAL PAIN, GIVEN DILAUDID DURING AM SHIFT, RIGHT FA PERIPHERAL LINE IS PATENT AND INFUSING WELL, NPO, PATIENT KEPT COMPLAING HOW HUNGRY HE IS AND ASKING JELLO. REINFORCE TEACHING ABOUT NO FOOD AND LIQUID DIET. NEEDS ATTENDED, CALL LIGHT WITHIN REACH.
[2017-09-10 20:05] VITALS: BP 151/96
--- NOTE | 2017-09-10 20:23 | NUR ---
RN NOTES NOTIFIED DR. HODGE OF CURRENT NPO DIET. PATIENT WANTS TO TAKE ORAL MEDICATIONS. CHANGED DIET TO NPO EXCEPT MEDICATIONS. ORDER NOTED AND CARRIED OUT.
[2017-09-10] MEDS: TEMAZEPAM 15 MG CAPSULE PO PRN (22:49)
[2017-09-11] MEDS ORDERED: HYDROMORPHONE INJ 2 MG/ML DISP.SYRIN ONE (00:37)
[2017-09-11] MEDS: IV NS 0.9% 1,000 ML IV PRN ×3 (01:12→16:59)
[2017-09-11] MEDS: HYDROMORPHONE INJ 2 MG/ML DISP.SYRIN IV PRN ×4 (01:12→19:41)
--- NOTE | 2017-09-11 06:30 | NUR ---
RN NOTES PATIENT IS ALERT AND AWAKE, NO SOB, NO DISTRESS, RESTLESS, COMPLAINING OF "WHY I CAN'T EAT?", EXPLAINED TO PATIENT RATIONALE FOR BEING NPO SECONDARY TO PANCREATITIS, RIGHT FA PERIPHERAL LINE IS PATENT AND INFUSING WELL, PROVIDED PAIN MEDICATION DURING SHIFT, ALL NEEDS ATTENDED, CALL LIGHT WITHIN REACH.
[2017-09-11 06:36] LABS: CALCIUM, SERUM 8.5 mg/dL (8.5-10.1); CREATININE 0.7 mg/dL (0.6-1.3); MAGNESIUM 1.7 mg/dL (1.8-2.4); POTASSIUM 3.7 mmol/L (3.5-5.1)
[2017-09-11 06:49] LABS: HEMATOCRIT 36 % (39-51); HEMOGLOBIN 11.6 g/dL (13.5-17.5); MEAN CORPUSCULAR HEMOGLOBIN 28 PG (26.0-33.0); MEAN CORPUSCULAR HGB CONC 32 g/dl (31.0-36.0); MEAN CORPUSCULAR VOLUME 87 fL (80-96); PLATELET COUNT (AUTO) 350 /CMM (150-450); RDW COEFFICIENT OF VARIATION 16.5 (11.5-15.0); RED BLOOD CELL COUNT(AUTO) 4.14 MIL/uL (4.5-6.0); THYROID STIMULATING HORMONE 2.221 uIU/mL (0.358-3.74); WHITE BLOOD COUNT (AUTO) 5.3 K/uL (4.3-11.0)
[2017-09-11 08:00] VITALS: BP_SYST 108; BP_SYST 118; BP_DIAS 78
[2017-09-11] MEDS: PANTOPRAZOLE 40 MG TABLET.DR PO SCH (08:37)
--- NOTE | 2017-09-11 09:10 | NUR ---
MS/RN Pain Dilaudid 0.25mg given for abdominal pain 06/01. Will monitor effectiveness.
[2017-09-11 10:23] LABS: BAND % (MANUAL) 1 % (0.0-5.0); EOSINOPHILS % (MANUAL) 1 % (0-4); LYMPHOCYTES % (MANUAL) 40 % (16-48); MONOCYTES % (MANUAL) 5 % (0-11.0); NEUTROPHILS % (MANUAL) 53 (42-76)
--- NOTE | 2017-09-11 11:00 | NUR ---
MS/RN S/B Arie Quiroz TRACK SUPERVISOR Seen by Arie oliver to be advanced as tolerated. Discharge planing tomorrow to home if not accepted by [facility] for admission. Awating review by Dr Frausto.
[2017-09-11] MEDS: Magnesium 1GM/D5W 100ML PREMIX 100 ML IV SCH ×2 (11:54→13:27)
--- NOTE | 2017-09-11 13:23 | NUR ---
MS/RN Diet Tolerating soft diet, no n/v/d
[2017-09-11 16:00] VITALS: BP 163/100
--- NOTE | 2017-09-11 16:33 | NUR ---
Patient reports living alone [place] [address] [place] [address] . He is ambulatory and independent with adls.His psychiatrist is at [facility] [address] [facility] [address] . Patient plan to return home upon discharge. Addendum: 09/11/17 at 1633 by AISLINN RODRIGUEZ RN Amended: Links added.
--- NOTE | 2017-09-11 18:29 | NUR ---
MS/RN End note Seen by Dr Dao - zoloft 100mg every morning ordered. Continue with 1:1 sitter for safety. Dilaudid last administered at 1825 for pain scale 8/10, all other needs attended. Medical records from [facility] placed in front of chart for review by tomorrow. Will endorse to police shift commander. Addendum: 09/11/17 at 1831 by BILL GARZON wrong note, wrong patient
--- NOTE | 2017-09-11 18:32 | NUR ---
MS/RN End note Seen by Dr Dao - patient cleared for discharge to [facility] tomorrow. Last pain medication administered 1531 with good effect Will endorse to security shift supervisor.
--- NOTE | 2017-09-11 19:45 | NUR ---
RN NOTES RECEIVED PT AWAKE ON BED COMPLAINING OF GENERALIZED BODY PAIN AT SCALE OF 8/10. BREATHING EVEN AND UNLABORED. AOX3 ABLE TO VERBALIZED NEEDS AND VERBALIZED UNDERSTANDING WHILE HIS HERE IN THE HOSPITAL AND PLAN OF CARE. WITH IV SITE ON RFA G 20 RUNNING WITH NS @ 125 CC/HR INTACT AND PATENT. ABLE TO AMBULATE. REMINDED TO USED CALL LIGHT WHEN NEED ASSISTANCE. KEPT PT CLEAN AND DRY WILL CONTINUE TO MONITOR.
[2017-09-11 20:00] VITALS: BP 148/99
[2017-09-11] MEDS: TEMAZEPAM 15 MG CAPSULE PO PRN (20:59)
[2017-09-12] MEDS: IV NS 0.9% 1,000 ML IV PRN (01:09)
[2017-09-12] MEDS: HYDROMORPHONE INJ 2 MG/ML DISP.SYRIN IV PRN ×4 (01:39→14:52)
[2017-09-12 06:39] LABS: BASOPHILS % (AUTO) 0.1 % (0.0-2.0); EOSINOPHILS # (AUTO) 0.1 /CMM (0.0-0.7); EOSINOPHILS % (AUTO) 1.5 % (0.0-6.0); HEMATOCRIT 37 % (39-51); HEMOGLOBIN 11.9 g/dL (13.5-17.5); LYMPHOCYTES # (AUTO) 1.7 /CMM (0.8-4.8); LYMPHOCYTES % (AUTO) 26.8 % (20.0-44.0); MEAN CORPUSCULAR HEMOGLOBIN 29 PG (26.0-33.0); MEAN CORPUSCULAR HGB CONC 33 g/dl (31.0-36.0); MEAN CORPUSCULAR VOLUME 88 fL (80-96); MONOCYTES # (AUTO) 0.4 /CMM (0.1-1.30); MONOCYTES % (AUTO) 6.2 % (2.0-12.0); NEUTROPHILS # (AUTO) 4.1 /CMM (1.8-8.9); NEUTROPHILS % (AUTO) 65.4 % (43.0-81.0); PLATELET COUNT (AUTO) 342 /CMM (150-450); RDW COEFFICIENT OF VARIATION 16.8 (11.5-15.0); RED BLOOD CELL COUNT(AUTO) 4.16 MIL/uL (4.5-6.0); WHITE BLOOD COUNT (AUTO) 6.2 K/uL (4.3-11.0)
--- NOTE | 2017-09-12 06:42 | NUR ---
RN NOTES PATIENT REMAINED CALM AND QUIET AFTER PAIN MEDICINE GIVEN. NO CHANGE IN MENTAL STATUS COMPLAINT WITH CARE. AFEBRILE. VS WNL. ALL NEEDS ATTENDED. IVF ONGOING AND TOLERATED WELL. ALL NEEDS ATTENDED. CLEANED AND DRY. WILL ENDORSED CONTINUITY OF CARE TO AM NURSE.
--- NOTE | 2017-09-12 07:00 | NUR ---
RN INITIAL NOTES REPORT RECEIVED FROM TRADE EMBALMER. NO SOB OR DISTRESS NOTED AT THIS TIME. PATIENT IS SLEEPING, DOES NOT APPEAR TO BE IN PAIN, NO FACIAL GRIMACE NOTED. BED IN A LOW POSITION, CALL LIGHT WITHIN PATIENT REACH. WILL CONTINUE TO MONITOR.
--- NOTE | 2017-09-12 07:39 | NUR ---
HUSEYIN BERMUDEZ PATIENT IS TAKING A SHOWER. IV COVERED TO KEEP DRY. SANGITA OCASIO WITH PATIENT FOR SAFETY.
[2017-09-12 08:00] VITALS: BP 162/91
[2017-09-12] MEDS: PANTOPRAZOLE 40 MG TABLET.DR PO SCH (08:27)
[2017-09-12] MEDS ORDERED: SERTRALINE HCL 50 MG TABLET PO SCH (09:00)
[2017-09-12 09:59] VITALS: BP 138/80
--- NOTE | 2017-09-12 15:39 | NUR ---
RN NOTES DISCHARGE INSTRUCTIONS GIVEN TO THE PATIENT AND ABLE TO UNDERSTAND. NO SOB OR DISTRESS NOTED AT THIS TIME. PATIENT REPORTS TOLERABLE PAIN. ALL PAPERWORK SIGNED AND BELONGINGS ACCOUNTED FOR. NEW PRESCRIPTION GIVEN TO THE PATIENT WELL ALL PAPERWORK. NO PICTURES NEEDED PATIENT SKIN IS INTACT. PT REFUSES FLU AND PNEUMONIA SHOT. PATIENT LEFT IN STABLE CONDITION, VIA TAXI TO HOME. NO NEW ISSUES NOTED.
== END 2017-09-12 15:40 | disposition home or self-care (01) | DRG 439 ==
LOC: ER 11:00 → MEDSG2 15:33
PROVIDERS: ADMIT Nurse Practitioner Acute Care; ATTEND Nurse Practitioner Acute Care
DX: K85.90 Acute pancreatitis without necrosis or infection, unspecified (principal); F33.9 Major depressive disorder, recurrent, unspecified; J44.9 Chronic obstructive pulmonary disease, unspecified; E83.42 Hypomagnesemia; K29.70 Gastritis, unspecified, without bleeding; G89.29 Other chronic pain; F17.200 Nicotine dependence, unspecified, uncomplicated; Z79.899 Other long term (current) drug therapy; Z98.890 Other specified postprocedural states; F19.10 Other psychoactive substance abuse, uncomplicated
CPT/HCPCS: 36415; 80048-TC; 80061-TC; 80076-TC; 80305; 81000-TC; 83690-TC; 83735-TC; 84100-TC; 84443-TC; 85025-TC; 85730-TC; 87081-TC; A4606; G0480; J1170; J2405; J3475; J7030; Z7610

== ENCOUNTER 2017-10-03 10:58 | Inpatient (IN) | payer MEDICARE, MEDICAID ==
[~2017-10-03] VITALS: Ht 200.7 cm; Wt 63.5 kg
[~2017-10-03 10:58] MED LIST changes: -PANT40TA2 PO
--- NOTE | 2017-10-03 11:15 | NUR ---
PRESENTS TO ER C/O FEELING SUICIDAL. PATIENT HAS NO PLANS, BUT STATES HE NEEDS TO BY CHRISTOPHE. A/OX 4. BREATHING EVEN AND UNLABORED. NO SOB. VITALS STABLE. PATIENT REMAINS CALM AND COOPERATIVE. SAFETY AND COMFORT MEASURES IN PLACE. AWAITING MD ORDERS.
--- NOTE | 2017-10-03 11:20 | NUR ---
URINE OBTAINED AND SENT TO LAB.
--- NOTE | 2017-10-03 11:25 | NUR ---
BURGLAR ALARM MECHANIC AT BEDSIDE FOR BLOOD DRAW.
[2017-10-03 11:48] LABS: APPEARANCE,URINE Clear (CLEAR); BILIRUBIN,URINE LARGE (NEGATIVE); BLOOD, URINE Negative Ery/uL (NEGATIVE); COLOR,URINE Amber (YELLOW); KETONES,URINE 15 (NEGATIVE); LEUKOCYTE ESTERASE ,URINE Negative (NEGATIVE); NITRITE, URINE Positive (NEGATIVE); PH,URINE 5.5 (5.0-8.0); PROTEIN,URINE 100 mg/dl (NEGATIVE); UGLUCOSE 100 MG/DL mg/dL (NEGATIVE)
[2017-10-03 11:49] LABS: BASOPHILS # (AUTO) 0.1 /CMM (0.0-0.2); BASOPHILS % (AUTO) 1.8 % (0.0-2.0); EOSINOPHILS # (AUTO) 0.1 /CMM (0.0-0.7); EOSINOPHILS % (AUTO) 1.8 % (0.0-6.0); HEMATOCRIT 43 % (39-51); HEMOGLOBIN 13.7 g/dL (13.5-17.5); LYMPHOCYTES # (AUTO) 1.2 /CMM (0.8-4.8); LYMPHOCYTES % (AUTO) 16.5 % (20.0-44.0); MEAN CORPUSCULAR HEMOGLOBIN 27 PG (26.0-33.0); MEAN CORPUSCULAR HGB CONC 32 g/dl (31.0-36.0); MEAN CORPUSCULAR VOLUME 86 fL (80-96); MONOCYTES # (AUTO) 0.4 /CMM (0.1-1.30); MONOCYTES % (AUTO) 6.2 % (2.0-12.0); NEUTROPHILS # (AUTO) 5.3 /CMM (1.8-8.9); NEUTROPHILS % (AUTO) 73.7 % (43.0-81.0); PLATELET COUNT (AUTO) 179 /CMM (150-450); RDW COEFFICIENT OF VARIATION 15.1 (11.5-15.0); RED BLOOD CELL COUNT(AUTO) 5.05 MIL/uL (4.5-6.0); WHITE BLOOD COUNT (AUTO) 7.1 K/uL (4.3-11.0)
[2017-10-03 11:54] LABS: BACTERIA,URINE 1+ /HPF (None Seen); RBC,URINE 0-2 /HPF (0-2); SQUAMOUS EPITHELIAL CELL,UR Rare /HPF (None Seen)
[2017-10-03 12:04] LABS: CALCIUM, SERUM 9.6 mg/dL (8.5-10.1); CARBON DIOXIDE 29 mmol/L (21-32); CHLORIDE 102 mmol/L (98-107); CREATININE 0.8 mg/dL (0.6-1.3); GLUCOSE 99 mg/dL (74-106); POTASSIUM 3.6 mmol/L (3.5-5.1); SODIUM SERUM 140 mmol/L (136-145); UREA NITROGEN, BLOOD 16 mg/dL (7-18)
[2017-10-03] MEDS ORDERED: ONDANSETRON HCL/PF 4 MG/2 ML VIAL ONE (12:04)
[2017-10-03 12:11] LABS: ALANINE AMINOTRANSFERASE 58 U/L (12-78); ALBUMIN 3.8 g/dL (3.4-5.0); ALCOHOL, BLOOD < 3 mg/dL (0-0); ALKALINE PHOSPHATASE 87 U/L (46-116); ASPARTATE AMINOTRANSFERASE 63 U/L (15-37); BILIRUBIN,DIRECT 0.1 mg/dL (0.0-0.2); SALICYLATE 1.4 mg/dL (2.8-20.0)
[2017-10-03 12:12] LABS: ACETAMINOPHEN 0 ug/ml (10-30)
--- NOTE | 2017-10-03 13:25 | NUR ---
REPORT GIVEN TO DESEAN FOR PASQUALE UPON ADMISSION.
--- NOTE | 2017-10-03 13:37 | NUR ---
PATIENT TRANSPORTED TO [facility], [address] VIA WHEELCHAIR. PATIENT ADMITTED VIA VOLUNTARY STATUS.
[2017-10-03 13:46] VITALS: BP 147/91
[2017-10-03] MEDS ORDERED: MAG HYDROX/AL HYDROX/SIMETH 30 ML UDC PO PRN (14:00)
[2017-10-03] MEDS ORDERED: TEMAZEPAM 7.5 MG CAPSULE PO PRN (14:00)
[2017-10-03] MEDS ORDERED: ACETAMINOPHEN 325 MG TABLET PO PRN (14:00)
--- NOTE | 2017-10-03 14:09 | NUR ---
GPS/RN-NOTES ADMITTED AWAKE,ALERT X4 66 Y.O MALE PATIENT FROM ER. PATIENT WAS UNDER THE CARE OF DR. TORRE ( PSYCHIATRIST) AND DR. ARDON (REPORTER ANCHOR).PATIENT SIGN VOLUNTARY AND SIGN ALL ADMISSION PAPERS. UPON FACE TO FACE INTERVIEW WITH THE PATIENT PATIENT DID NOT VERBALIZE SI/HI,DENIES VISUAL/AUDITORY HALLUCINATION. PATIENT WAS SEEN BY BOTH DOCTORS WITH ORDERS.
[2017-10-03 16:00] VITALS: BP 123/76
--- NOTE | 2017-10-03 16:19 | NUR ---
GPS/RN-NOTES PATIENT DAUGHTER JUANITA MADE AWARE OF PATIENT ADMISSION IN THE UNIT.
[2017-10-03] MEDS: oxyCODONE IR immediate release 5 MG CAPSULE PO SCH (16:50)
[2017-10-03] MEDS: LORAZEPAM 0.5 MG TABLET PO PRN (19:57)
--- NOTE | 2017-10-03 19:57 | NUR ---
GPS RN NOTES: PATIENT AWAKE, ALERT AND ORIENTED X4. PATIENT IS ANXIOUS. PATIENT REQUESTED FOR ATIVAN. VITALS SIGN ARE STABLE AT THIS TIME. ATIVAN 0.5MG PO GIVEN PRN ORDER. WILL CONTINUE TO MONITOR [id number] FOR SAFETY AND BEHAVIOR.
[2017-10-03 20:12] VITALS: BP 160/90
[2017-10-03] MEDS: oxyCODONE HCL SR 40MG TAB.SR.12H PO PRN (21:44)
[2017-10-04] MEDS ORDERED: diphenhydrAMINE HCL 25 MG CAPSULE ONE ×2 (01:13→22:39)
[2017-10-04] MEDS ORDERED: diphenhydrAMINE HCL 25 MG CAPSULE PO ONE ×2 (01:30→23:00)
--- NOTE | 2017-10-04 01:30 | NUR ---
GPS RN NOTES: PATIENT COMPLAINED OF ITCHING ON HIS BACK. PATIENT REQUESTED FOR ANTI ITCH MEDICATION. CALLED AUTO CLUTCH SPECIALIST SAIRA AND NOTIFIED FINDING ASSESSMENT WITH NEW ORDER OF BENADRYL 25MG PO X 1 NOTED AND CARRIED OUT. WILL CONTINUE TO MONITOR.
[2017-10-04] MEDS: LORAZEPAM 0.5 MG TABLET PO PRN ×2 (03:36→12:06)
--- NOTE | 2017-10-04 03:37 | NUR ---
GPS RN NOTES: PATIENT AWAKE, ALERT AND ORIENTED X4. PATIENT IS ANXIOUS. PATIENT REQUESTED FOR ATIVAN. VITAL SIGNS ARE STABLE AT THIS TIME. ATIVAN 0.5MG PO GIVEN PRN ORDER. WILL CONTINUE TO MONITOR [id number] FOR SAFETY AND BEHAVIOR.
[2017-10-04 07:56] LABS: ALBUMIN 3.9 g/dL (3.4-5.0); BILIRUBIN,TOTAL 0.9 mg/dL (0.2-1.0); CALCIUM, SERUM 10.1 mg/dL (8.5-10.1); POTASSIUM 3.5 mmol/L (3.5-5.1); TOTAL PROTEIN, SERUM 7.2 g/dL (6.4-8.2)
[2017-10-04 08:00] VITALS: BP 132/95
[2017-10-04] MEDS: oxyCODONE IR immediate release 5 MG CAPSULE PO SCH ×4 (08:29→16:31)
[2017-10-04] MEDS: SERTRALINE HCL 50 MG TABLET PO SCH (09:10)
[2017-10-04] MEDS: MAGNESIUM HYDROXIDE 30 ML UDC PO PRN (09:33)
[2017-10-04 16:00] VITALS: BP 126/86
[2017-10-04] MEDS: CEPHALEXIN MONOHYDRATE 250 MG CAPSULE PO SCH (18:25)
--- NOTE | 2017-10-04 19:05 | NUR ---
GPS RN NOTE, LOUD NOISE HEARD FROM ROOM 216 DOOR SLAMMING SHUT. PATIENT FOUND ON THE FLOOR STATING, " I FELL ON THE FLOOR COMING OUT OF THE BATHROOM, I BUMP MY HEAD AND MY LEFT SHOULDER AND LEFT HIP IS IN PAIN ". PATIENT IS IN A 5 OUT 10 PAIN IN BOTH HIS LEFT SHOULDER AND LEFT HIP ON THE PAIN SCALE. PATIENT IS BEING TREATED WITH ORAL PAIN MEDICATION FOR THIS PAIN. PATIENT BREATHING IS UNLABORED WITH EQUAL RISE AND FALL OF THE CHEST. PATIENT IS ALERT AND ORIENTED X3 ON ROOM AIR WITH A SPOO2 95%. PATIENT VITAL SIGNS ARE FOLLOWS B/P 148/100, PULSE 85, TEMP 98, RES 20, SPO2 95%. PAGED [employer] AND INFORMED WALESKA PALACIOS OF MY FINDINGS. WALESKA RAMIREZP ORDERED CT HEAD WO CONTRAST, XR OF LEFT HIP 1 VIEW, AND XR LEFT SHOULDER COMPLETE STAT. ALL ORDERS NOTED AND CARRIED OUT. PATIENT ASSISTED WITH TURNING AND REPOSITIONING Q2HR AND PRN FOR COMFORT AND CIRCULATION. PATIENT HAS NO NEEDS AT THIS TIME. PATIENT EDUCATED ON THE USE OF THE CALL CANTU. PLACED A WALL AT BED SIDE FOR SAFETY. BED ALARM ON FOR SAFETY. PATIENT BED SIDE RAILS UP X 2 FOR SAFETY. PATIENT BED IS LOCKED AND LOW WILL CONTINUE TO MONITOR AND MAINTAIN SAFETY Q15 MIN WITH THE HELP OF STAFF.
[2017-10-04 20:08] VITALS: BP 151/98
[2017-10-04] MEDS: oxyCODONE HCL SR 40MG TAB.SR.12H PO PRN (21:57)
--- NOTE | 2017-10-04 21:57 | NUR ---
GPS RN NOTE, PATIENT HAS A COMPLAINT OF LOWER BACK PAIN AT A 5 OUT OF 10 ON THE PAIN AND IS REQUESTING OXYCONTIN AT THIS TIME. PATIENT VITAL SIGNS ARE STABLE. GAVE OXYCONTIN 40 MG PO Q8HR PRN ORDERED. WILL REASSESS PAIN AND I WILL CONTINUE TO MONITOR THIS PATIENT.
--- NOTE | 2017-10-04 22:37 | NUR ---
GPS RN NOTE, PATIENT HAS A COMPLAINT OF PRURITUS ALL OVER HIS BODY AT THIS TIME BUT HAS NO DIFFICULTLY SWALLOWING. PAGED [facility] AND INFORMED WALESKA PALACIOS OF MY FINDINGS. WALESKA PALACIOS ORDERED BENADRYL 25MG PO ONCE. ALL ORDERS NOTED AND CARRIED OUT WILL CONTINUE TO MONITOR THIS PATIENT.
[2017-10-04] MEDS: TEMAZEPAM 7.5 MG CAPSULE PO PRN (23:29)
--- NOTE | 2017-10-04 23:29 | NUR ---
GPS RN NOTE, PATIENT HAS A COMPLAINT OF NOT BEING ABLE TO SLEEP AND IS REQUESTING RESTORIL AT THIS TIME. PATIENT VITAL SIGNS ARE STABLE. GAVE RESTORIL 15MG PO HS ORDERED. WILL REASSESS FOR INSOMNIA AND I WILL CONTINUE TO MONITOR THIS PATIENT.
[2017-10-05] MEDS: CEPHALEXIN MONOHYDRATE 250 MG CAPSULE PO SCH ×4 (00:24→17:19)
[2017-10-05] MEDS: oxyCODONE IR immediate release 5 MG CAPSULE PO SCH ×3 (08:18→16:45)
[2017-10-05] MEDS: SERTRALINE HCL 50 MG TABLET PO SCH (08:18)
[2017-10-05 08:38] VITALS: BP 148/95
[2017-10-05] MEDS: NICOTINE PATCH (14MG) 14 MG PATCH.TD24 TD SCH (09:02)
[2017-10-05 15:30] VITALS: BP 152/64
[2017-10-05] MEDS: MAGNESIUM HYDROXIDE 30 ML UDC PO PRN (19:46)
[2017-10-05 20:00] VITALS: BP 140/70
[2017-10-05] MEDS: MIRTAZAPINE 15 MG TABLET PO SCH (21:26)
[2017-10-05] MEDS: TEMAZEPAM 7.5 MG CAPSULE PO PRN (21:27)
[2017-10-05] MEDS: oxyCODONE HCL SR 40MG TAB.SR.12H PO PRN (22:14)
[2017-10-06] MEDS: CEPHALEXIN MONOHYDRATE 250 MG CAPSULE PO SCH ×5 (00:17→23:07)
[2017-10-06 08:00] VITALS: BP 124/78
[2017-10-06] MEDS: SERTRALINE HCL 50 MG TABLET PO SCH (08:40)
[2017-10-06] MEDS: NICOTINE PATCH (14MG) 14 MG PATCH.TD24 TD SCH (08:40)
[2017-10-06] MEDS: oxyCODONE IR immediate release 5 MG CAPSULE PO SCH ×3 (08:40→17:01)
--- NOTE | 2017-10-06 09:15 | NUR ---
[place] [address] [address] / [phone]. Patient states that he would like to return there upon discharge stating, "I paid money for that. Of course I'm going back." Patient adamantly stated that he does not want DENIS to contact his daughter, Luisa Lugo [phone]. DENIS to consult with MD and form a safe and proper discharge. Addendum: 10/06/17 at 0916 by ABDIEL BARRIOS Upon discharge, patient will be provided with referrals for smoking cessation and substance use.
[2017-10-06] MEDS: LORAZEPAM 0.5 MG TABLET PO PRN (10:22)
[2017-10-06 16:00] VITALS: BP 133/79
[2017-10-06 20:00] VITALS: BP 123/87
[2017-10-06] MEDS: oxyCODONE HCL SR 40MG TAB.SR.12H PO PRN (20:13)
[2017-10-06] MEDS: diphenhydrAMINE HCL 25 MG CAPSULE PO PRN (20:13)
[2017-10-06] MEDS: TEMAZEPAM 7.5 MG CAPSULE PO PRN (21:36)
[2017-10-06] MEDS: MIRTAZAPINE 15 MG TABLET PO SCH (21:36)
[2017-10-06] MEDS: MAGNESIUM HYDROXIDE 30 ML UDC PO PRN (23:07)
[2017-10-07] MEDS: CEPHALEXIN MONOHYDRATE 250 MG CAPSULE PO SCH ×3 (05:09→17:11)
[2017-10-07] MEDS: oxyCODONE HCL SR 40MG TAB.SR.12H PO PRN ×2 (05:10→20:59)
[2017-10-07 08:00] VITALS: BP 137/85
[2017-10-07] MEDS: SERTRALINE HCL 50 MG TABLET PO SCH (08:39)
[2017-10-07] MEDS: oxyCODONE IR immediate release 5 MG CAPSULE PO SCH ×3 (08:39→16:52)
[2017-10-07] MEDS: NICOTINE PATCH (14MG) 14 MG PATCH.TD24 TD SCH (08:39)
[2017-10-07] MEDS: diphenhydrAMINE HCL 25 MG CAPSULE PO PRN (10:38)
[2017-10-07 16:00] VITALS: BP 149/86
[2017-10-07] MEDS: BOOST PLUS FOOD-VANILLA 237 ML BOX PO SCH (16:50)
[2017-10-07 20:00] VITALS: BP 133/66
[2017-10-07] MEDS: MIRTAZAPINE 15 MG TABLET PO SCH (21:48)
[2017-10-07] MEDS: TEMAZEPAM 7.5 MG CAPSULE PO PRN (21:50)
[2017-10-08] MEDS: CEPHALEXIN MONOHYDRATE 250 MG CAPSULE PO SCH ×5 (00:19→23:21)
[2017-10-08 08:00] VITALS: BP 162/90
[2017-10-08] MEDS: BOOST PLUS FOOD-VANILLA 237 ML BOX PO SCH ×3 (08:26→16:48)
[2017-10-08] MEDS: SERTRALINE HCL 50 MG TABLET PO SCH ×2 (08:27→16:49)
[2017-10-08] MEDS: NICOTINE PATCH (14MG) 14 MG PATCH.TD24 TD SCH (08:27)
[2017-10-08] MEDS: oxyCODONE IR immediate release 5 MG CAPSULE PO SCH ×3 (08:27→16:48)
[2017-10-08 15:59] VITALS: BP 150/99
[2017-10-08 20:11] VITALS: BP 150/89
[2017-10-08] MEDS: diphenhydrAMINE HCL 25 MG CAPSULE PO PRN (20:37)
--- NOTE | 2017-10-08 20:40 | NUR ---
GPS RN NOTE PT C/O ITCHING ALL OVER, BENADRYL 25 MG PO GIVEN. CONTINUE TO MONITOR HIM.
[2017-10-08] MEDS: oxyCODONE HCL SR 40MG TAB.SR.12H PO PRN (21:31)
[2017-10-08] MEDS: MIRTAZAPINE 15 MG TABLET PO SCH (21:31)
[2017-10-08] MEDS: TEMAZEPAM 7.5 MG CAPSULE PO PRN (21:31)
--- NOTE | 2017-10-08 21:40 | NUR ---
GPS RN NOTE ITCHING SUBSIDED. CONTINUE TO MONITOR HIM.
[2017-10-09] MEDS: CEPHALEXIN MONOHYDRATE 250 MG CAPSULE PO SCH ×4 (05:08→23:48)
[2017-10-09 08:25] VITALS: BP 156/78
[2017-10-09] MEDS: BOOST PLUS FOOD-VANILLA 237 ML BOX PO SCH ×3 (08:35→16:17)
[2017-10-09] MEDS: NICOTINE PATCH (14MG) 14 MG PATCH.TD24 TD SCH (08:35)
[2017-10-09] MEDS: SERTRALINE HCL 50 MG TABLET PO SCH ×2 (08:35→16:18)
[2017-10-09] MEDS: oxyCODONE IR immediate release 5 MG CAPSULE PO SCH ×3 (08:36→16:17)
[2017-10-09] MEDS: diphenhydrAMINE HCL 25 MG CAPSULE PO PRN (15:19)
--- NOTE | 2017-10-09 15:23 | NUR ---
GPS/RN-NOTES PATIENT REQUESTING BENADRYL FOR GENERALIZED BODY ITCH. BENADRYL 25MG O.O GIVEN PRN ORDER. WILL CONT. MONITORING.
[2017-10-09 15:58] VITALS: BP 132/85
--- NOTE | 2017-10-09 19:30 | NUR ---
GPS RN NOTE, RECEIVED PATIENT AWAKE AND IN BED NO S/S OR COMPLAINTS OF PAIN AT THIS TIME. PATIENT IS DISPLAYING NO S/S OF APPARENT DISTRESS AT THIS TIME. PATIENT BREATHING IS UNLABORED WITH EQUAL RISE AND FALL OF THE CHEST. PATIENT IS ALERT AND ORIENTED X 3 ON ROOM AIR WITH A SPOO2 99%. PATIENT IS COMPLAINT WITH MEDICATION, COOPERATIVE, ANXIOUS AT TIMES, DISORGANIZED, AND NEEDS REORIENTATION. PATIENT DENIES SUICIDE IDEATIONS AND HOMICIDAL IDEATIONS AT THIS TIME. PATIENT ASSISTED WITH TURNING AND REPOSITIONING Q2HR AND PRN FOR COMFORT AND CIRCULATION. PATIENT HAS NO NEEDS AT THIS TIME. PATIENT EDUCATED ON THE USE OF THE CALL CANTU. PATIENT BED SIDE RAILS UP X 2 FOR SAFETY. PATIENT BED IS LOCKED AND LOW WILL CONTINUE TO MONITOR AND MAINTAIN SAFETY Q15 MIN WITH THE HELP OF STAFF.
[2017-10-09 19:48] VITALS: BP 114/61
[2017-10-09] MEDS: oxyCODONE HCL SR 40MG TAB.SR.12H PO PRN (20:42)
--- NOTE | 2017-10-09 20:42 | NUR ---
GPS RN NOTE, PATIENT HAS A COMPLAINT OF GENERALIZED BODY PAIN AT 5 OUT 10 ON THE PAIN SCALE AND IS REQUESTING OXYCONTIN AT THIS TIME. PATIENT VITAL SIGNS ARE STABLE. GAVE OXYCONTIN 40MG PO Q8HR PRN ORDERED. WILL REASSESS FOR PAIN AND I WILL CONTINUE TO MONITOR THIS PATIENT.
[2017-10-09] MEDS: MIRTAZAPINE 15 MG TABLET PO SCH (21:18)
[2017-10-09] MEDS: TEMAZEPAM 7.5 MG CAPSULE PO PRN (22:37)
--- NOTE | 2017-10-09 22:37 | NUR ---
GPS RN NOTE, PATIENT HAS A COMPLAINT OF NOT BEING ABLE TO SLEEP AND IS REQUESTING RESTORIL AT THIS TIME. PATIENT VITAL SIGNS ARE STABLE. GAVE RESTORIL 30MG PO HS ORDERED. WILL REASSESS FOR INSOMNIA AND I WILL CONTINUE TO MONITOR THIS PATIENT.
[2017-10-10] MEDS: CEPHALEXIN MONOHYDRATE 250 MG CAPSULE PO SCH (05:26)
[2017-10-10 08:18] VITALS: BP 144/72
[2017-10-10] MEDS: NICOTINE PATCH (14MG) 14 MG PATCH.TD24 TD SCH (08:19)
[2017-10-10] MEDS: SERTRALINE HCL 50 MG TABLET PO SCH ×2 (08:19→16:33)
[2017-10-10] MEDS: oxyCODONE IR immediate release 5 MG CAPSULE PO SCH ×3 (08:21→16:32)
[2017-10-10] MEDS: BOOST PLUS FOOD-VANILLA 237 ML BOX PO SCH ×3 (09:44→16:29)
[2017-10-10] MEDS: LORAZEPAM 0.5 MG TABLET PO PRN (11:14)
--- NOTE | 2017-10-10 11:15 | NUR ---
GPS/RN-NOTES PATIENT REQUESTING ATIVAN FOR ANXIETY. ATIVAN 0.5MG P.O GIVEN PRN ORDER. WILL CONT. MONITORING FOR SAFETY AND BEHAVIOR.
[2017-10-10 15:52] VITALS: BP 107/60
[2017-10-10] MEDS: oxyCODONE HCL SR 40MG TAB.SR.12H PO PRN (20:54)
--- NOTE | 2017-10-10 20:57 | NUR ---
GPS RN NOTE PATIENT C/O GENERALIZED BODY PAIN AT 8 OUT 10 ON THE PAIN SCALE AND IS REQUESTING OXYCONTIN AT THIS TIME. PATIENT VITAL SIGNS ARE STABLE. GAVE OXYCONTIN 40MG PO Q8HR PRN ORDERED. WILL REASSESS FOR PAIN AND I WILL CONTINUE TO MONITOR THIS PATIENT.
[2017-10-10 21:07] VITALS: BP 135/65
[2017-10-10] MEDS: MIRTAZAPINE 15 MG TABLET PO SCH (21:58)
[2017-10-10] MEDS: TEMAZEPAM 7.5 MG CAPSULE PO PRN (22:58)
[2017-10-11 08:00] VITALS: BP 115/68
[2017-10-11] MEDS: NICOTINE PATCH (14MG) 14 MG PATCH.TD24 TD SCH (08:28)
[2017-10-11] MEDS: oxyCODONE IR immediate release 5 MG CAPSULE PO SCH ×3 (08:29→16:46)
[2017-10-11] MEDS: SERTRALINE HCL 50 MG TABLET PO SCH ×2 (08:29→16:45)
[2017-10-11] MEDS: BOOST PLUS FOOD-VANILLA 237 ML BOX PO SCH ×3 (08:30→16:46)
[2017-10-11] MEDS: oxyCODONE HCL SR 40MG TAB.SR.12H PO PRN ×2 (11:46→19:55)
[2017-10-11 16:13] VITALS: BP 129/73
[2017-10-11] MEDS: diphenhydrAMINE HCL 25 MG CAPSULE PO PRN (17:40)
[2017-10-11 19:55] VITALS: BP 140/72
--- NOTE | 2017-10-11 19:55 | NUR ---
GPS RN NOTE PATIENT C/O GENERALIZED BODY PAIN AT 8 OUT 10 ON THE PAIN SCALE AND IS REQUESTING OXYCONTIN AT THIS TIME. PATIENT VITAL SIGNS ARE STABLE. GAVE OXYCONTIN 40MG PO Q8HR PRN ORDERED. WILL REASSESS FOR PAIN , WILL CONTINUE TO MONITOR THIS PATIENT.
[2017-10-11] MEDS: MIRTAZAPINE 15 MG TABLET PO SCH (21:23)
[2017-10-11] MEDS: TEMAZEPAM 7.5 MG CAPSULE PO PRN (21:54)
[2017-10-12 08:00] VITALS: BP 125/79
[2017-10-12] MEDS: BOOST PLUS FOOD-VANILLA 237 ML BOX PO SCH ×3 (08:04→16:39)
[2017-10-12] MEDS: oxyCODONE IR immediate release 5 MG CAPSULE PO SCH ×3 (08:06→16:39)
[2017-10-12] MEDS: SERTRALINE HCL 50 MG TABLET PO SCH ×2 (08:06→16:39)
[2017-10-12] MEDS: NICOTINE PATCH (14MG) 14 MG PATCH.TD24 TD SCH (08:06)
[2017-10-12] MEDS: diphenhydrAMINE HCL 25 MG CAPSULE PO PRN (14:11)
--- NOTE | 2017-10-12 15:18 | NUR ---
Discharge Planning: SW spoke with patient about his discharge tomorrow. Patient was agreeable with the plan and seemed content with going home. Patient stated that he did not want SW contacting his daughter, Luisa Lugo [phone], stating, "I will call her myself."
[2017-10-12] MEDS: oxyCODONE HCL SR 40MG TAB.SR.12H PO PRN (15:23)
--- NOTE | 2017-10-12 15:23 | NUR ---
GPS RN NOTE PATIENT C/O GENERALIZED BODY PAIN AT 8 OUT 10 ON THE PAIN SCALE AND IS REQUESTING OXYCONTIN AT THIS TIME. GAVE OXYCONTIN 40MG PO Q8HR PRN ORDERED. WILL REASSESS FOR PAIN , WILL CONTINUE TO MONITOR THIS PATIENT.
[2017-10-12 16:00] VITALS: BP 146/91
[2017-10-12 20:00] VITALS: BP 127/78
[2017-10-12] MEDS: TEMAZEPAM 7.5 MG CAPSULE PO PRN (21:18)
[2017-10-12] MEDS: MIRTAZAPINE 15 MG TABLET PO SCH (21:18)
[2017-10-13] MEDS: oxyCODONE HCL SR 40MG TAB.SR.12H PO PRN (00:36)
[2017-10-13 08:00] VITALS: BP 153/91
[2017-10-13] MEDS: oxyCODONE IR immediate release 5 MG CAPSULE PO SCH ×2 (08:01→12:08)
[2017-10-13] MEDS: SERTRALINE HCL 50 MG TABLET PO SCH (08:01)
[2017-10-13] MEDS: NICOTINE PATCH (14MG) 14 MG PATCH.TD24 TD SCH (08:01)
--- NOTE | 2017-10-13 08:46 | NUR ---
DR. RUBIO GAVE AN ORDER TO D/C HOLD AND D/C HOME TODAY AND TO FOLLOW UP WITH PSYCH AND MEDICAL DOCTORS. PT. WITHOUT DISTRESS, DENIES SUICIDAL AND HOMICIDAL.
[2017-10-13] MEDS: BOOST PLUS FOOD-VANILLA 237 ML BOX PO SCH ×2 (08:47→12:00)
--- NOTE | 2017-10-13 08:54 | NUR ---
Discharge Note Patient will be discharged home to [address] [facility] [address] [place] [address] / [phone] via taxi transportation arranged by oncology social worker through [employer], . Patient did not wish for his daughter, Luisa Lugo [phone], to be contacted. Patient stated that he will contact his daughter himself. Patient has an appointment with his manager utilization review, [facility]. [facility] [place] [address] [place] [address] on MondayOctober 18 at 10:00am. Patient was also referred to [facility] [address] [facility] [address], [place] . Patient was also given referrals to [facility] [address] [place] [address] and was encouraged to present at 9:30am for intake screening on October 17. Patient was also referred to [facility] [address] [place] [address] and [facility] [place] [address] [place] [address] . Patient was encouraged to present to a smoking cessation group at [address] on October 19 at 7pm. Additional resources included [employer] 800-LUNGUSA and [employer] [phone]
--- NOTE | 2017-10-13 10:31 | NUR ---
JULIANA FERNANDEZ MADE AWARE OF THE DISCHARGE AND SAID OK FOR DISCHARGE WROTE A PRESCRIPTIONS.
[2017-10-13] MEDS: diphenhydrAMINE HCL 25 MG CAPSULE PO PRN (10:40)
--- NOTE | 2017-10-13 10:41 | NUR ---
RN Note: Diphenhydramine HCL 25mg given to patient
--- NOTE | 2017-10-13 13:30 | NUR ---
Pt. left the unit with belongings and escorted by staff to the lobby. Left without distress, ambulatory and on stable condition. Was instructed on meds to continue at home and verbalizes understanding and advised to make a follow up to psych and medical doctors and agreed. Pt. signed the discharge papers and provided on discharge papers. V/S taken: BP : 138/90, TN 80, RR 18, TEMP. 98% and oxygen sat 100%.
== END 2017-10-13 13:30 | disposition home or self-care (01) | DRG 885 ==
LOC: ER 11:00 → GPS 13:26
PROVIDERS: ADMIT Psychiatry & Neurology Psychiatry; ATTEND Psychiatry & Neurology Psychiatry
DX: F33.2 Major depressive disorder, recurrent severe without psychotic features (principal); F11.20 Opioid dependence, uncomplicated; J44.9 Chronic obstructive pulmonary disease, unspecified; R45.851 Suicidal ideations; K86.1 Other chronic pancreatitis; N39.0 Urinary tract infection, site not specified; E78.5 Hyperlipidemia, unspecified; F17.210 Nicotine dependence, cigarettes, uncomplicated; F43.10 Post-traumatic stress disorder, unspecified; G89.4 Chronic pain syndrome; Z98.890 Other specified postprocedural states; F12.10 Cannabis abuse, uncomplicated; Z79.899 Other long term (current) drug therapy; Z82.49 Family history of ischemic heart disease and other diseases of the circulatory system
CPT/HCPCS: 36415; 70450-TC; 73020; 73030-TC; 80048-TC; 80053-TC; 80061-TC; 80076-TC; 80305; 81000-TC; 85025-TC; 87081-TC; 87086-TC; G0480; J2405; Q0163; Z7610